=== PATIENT | female | born 1960 | race Caucasian/White ===

== ENCOUNTER → 2017-03-01 | Outpatient (CLI) | payer MEDICARE ==
--- NOTE | 2017-03-01 12:50 | MM ---
Reason for exam: additional evaluation requested from prior study. Last mammogram was performed 3 years and 6 months ago. History: Patient is postmenopausal and is nulliparous. Family history of breast cancer in cousin at age 44 and breast cancer in aunt at age 55. Benign excisional biopsy of the right breast, January 2004. Benign stereotactic core biopsy of the left breast, December 08, 1999. Benign stereotactic core biopsy of the right breast, February 19, 1998. Benign core biopsy of the left breast, February 12, 1997. Benign core biopsy of the right breast, February 12, 1997. Cyst aspiration of the left breast. Cyst aspiration of the right breast. Excisional biopsy of the left breast. Physical Findings: Nurse did not find any significant physical abnormalities on exam. MG 3D Diag Mammo W/Cad HEVER Bilateral CC, MLO, and XCCL view(s) were taken. Prior study comparison: August 28, 2013, bilateral MG diagnostic mammo w CAD HEVER. June 12, 2012, CAD bilateral diagnostic mammogram. January 24, 2011, bilateral digital screening mammo w/CAD. The breast tissue is heterogeneously dense. This may lower the sensitivity of mammography. Finding: There are stable typically benign calcifications in both breasts. No suspicious abnormality. These results were verbally communicated with the patient and result sheet given to the patient on 03/01/17. ASSESSMENT: Benign, BI-RAD 2 RECOMMENDATION: Routine screening mammogram of both breasts in 1 year. Manage patient on a clinical basis. (bilateral nonfocal breast pain)
== END | disposition home or self-care (01) ==
LOC: RADMAMWWP 11:03
PROVIDERS: ATTEND Family Medicine
DX: R92.8 Other abnormal and inconclusive findings on diagnostic imaging of breast (principal); N64.4 Mastodynia
CPT/HCPCS: G0204; G0279

== ENCOUNTER → 2018-10-24 | Outpatient (CLI) | payer MEDICARE ==
--- NOTE | 2018-10-25 09:35 | MM ---
Reason for exam: clinical finding. Last mammogram was performed 1 year and 8 months ago. History: Patient is postmenopausal and is nulliparous. Family history of breast cancer in cousin at age 44 and breast cancer in aunt at age 55. Benign excisional biopsy of the right breast, January 2004. Benign stereotactic core biopsy of the left breast, December 08, 1999. Benign stereotactic core biopsy of the right breast, February 19, 1998. Benign core biopsy of the left breast, February 12, 1997. Benign core biopsy of the right breast, February 12, 1997. Cyst aspiration of the left breast. Cyst aspiration of the right breast. Excisional biopsy of the left breast. Physical Findings: Nurse did not find any significant physical abnormalities on exam. MG 3D Diag Mammo W/Cad HEVER Bilateral CC and MLO view(s) were taken. LM, CC with magnification, and LM with magnification view(s) were taken of the left breast. Prior study comparison: March 01, 2017, bilateral MG 3d diag mammo w/cad HEVER. August 28, 2013, bilateral MG diagnostic mammo w CAD HEVER. The breast tissue is heterogeneously dense. This may lower the sensitivity of mammography. Finding: There are intermediate concern, suspicious heterogeneous, grouped/clustered calcifications in the 11-12 o'clock middle position of the left breast 5cm from the nipple. New finding since March 01, 2017. These results were verbally communicated with the patient and result sheet given to the patient on 10/24/18. ASSESSMENT: Suspicious, BI-RAD 4 RECOMMENDATION: Stereotactic core biopsy of the left breast. Manage patient on a clinical basis. Called Dr. Mccormick with mammographic findings and has scheduled an appointment for the patient for 11/14/18 at 4:[address] Singh. Biopsy scheduled for 11/15/18 at 10:20. PRELIMINARY REPORT CALLED AND FAXED TO DR. SINGH ON 10/25/18.
== END | disposition home or self-care (01) ==
LOC: RADMAMWWP 12:59
PROVIDERS: ATTEND Family Medicine
DX: R92.8 Other abnormal and inconclusive findings on diagnostic imaging of breast (principal)
CPT/HCPCS: 77066; G0279; 77062

== ENCOUNTER → 2018-11-14 | Outpatient (CLI) | payer MEDICARE ==
[2018-11-14 16:16] VITALS: BP 120/79; PULSE 65; RESP 18; TEMP 98; BMI 42.0
--- NOTE | 2018-11-14 16:45 | P.GSHP ---
History of Present Illness H&P Date: 11/14/18 Chief Complaint: abnormal mammogram Charmaine is a 58-year-old white female with a complaint of right breast discomfort in the upper outer quadrant area. She says she noted it first 2 months ago after her dog jumped on her breast. She subsequently had a bilateral mammogram performed on and this revealed some calcifications of concern in the left breast. Nothing of concern was seen in the right breast. The patient states she still has some discomfort at that site in the right breast. The patient does not complain of any lumps or masses in her breasts. Family history: maternal aunt: breast cancer maternal cousin: breast cancer 2nd maternal cousin: breast cancer maternal grandmother: ovarian cancer paternal grandmother: skin cancer Hormonal history: Menarche: 9 G0 menopause: hysterectomy at 40 done for bleeding, took both ovaries BCP: 1 month hormones: none Surgical history: 1. Hysterectomy 2. thyroid resection was in mediastinum 3. tumors removed in head: neurofibromatosis 4. plates in head 5. tonsils 6. bladder suspension 7. gastric bypass 8. gallbladder 9. appendix 10. multiple orthopedic procedures History: 1. Neurofibromatosis History: Smoke: Negative Alcohol: Negative Drugs: Negative Medical History: - Constitutional Constitutional: Denies chills, Denies fever - EENT Eyes: denies blurred vision, denies pain Ears: left: decreased hearing, deny: tinnitus Ears, nose, mouth and throat: Reports headache, Denies sore throat - Breasts Breasts: bilateral: as per HPI - Cardiovascular Cardiovascular: Reports high blood pressure, Denies chest pain, Denies shortness of breath - Respiratory Respiratory: Denies cough, Denies 7 - Gastrointestinal Gastrointestinal: Denies abdominal pain, Denies diarrhea, Denies nausea, Denies vomiting - Genitourinary (Female) Genitourinary: Denies dysuria, Denies hematuria - Menstruation Menstruation: Reports post hysterectomy - Musculoskeletal Musculoskeletal: Denies myalgias - Integumentary Integumentary: Denies pruritus, Denies rash - Neurological Comment: Neurofibromatosis - Psychiatric Psychiatric: Denies anxiety, Denies depression - Endocrine Comment: lost 200 pounds after bypass, did weigh close to 400 pounds Endocrine: Denies fatigue, Denies weight change - Hematologic/Lymphatic Comment: none - Allergic/Immunologic Allergic/Immunologic: Reports seasonal allergies Past Medical History Past Medical History: CVA/TIA, Hypertension, Skin Disorder, Thyroid Disorder Additional Past Medical History / Comment(s): TIA X3, RT HAND NUMBNESS, neurofibormatosis-cyst form,bowel obstruction surgery 10/17/15 History of Any Multi-Drug Resistant Organisms: None Reported Past Surgical History: Appendectomy, Bariatric Surgery, Cholecystectomy, Hysterectomy, Orthopedic Surgery, Tonsillectomy Additional Past Surgical History / Comment(s): RYGB 11/22/2012, tumors removed from scalp, THYROIDECTOMY, panniculectomy 02/14/14 of 25lbs, lap band, gastric bypass. Bowel obstruction-laparoscopic surgery. Past Anesthesia/Blood Transfusion Reactions: No Reported Reaction Past Psychological History: No Psychological Hx Reported Smoking Status: Never smoker Past Alcohol Use History: None Reported Past Drug Use History: None Reported - Past Family History Sister(s) Family Medical History: Deep Vein Thrombosis (DVT) Medications and Allergies Home Medications Medication Instructions Recorded Confirmed Type Multivit with Calcium,Iron,Min 1 tab PO DAILY 09/23/13 11/14/18 History [Women's Daily Multivitamin] Topiramate 50 mg PO TID 09/23/13 11/14/18 History Chlorthalidone 25 mg PO DAILY 10/17/15 11/14/18 History Propranolol [Inderal] 20 mg PO BID 10/17/15 11/14/18 History amLODIPine BESYLATE [Amlodipine 5 mg PO DAILY 10/17/15 11/14/18 History Besylate] Calcium Lactate 84 mg PO BID #60 tablet 01/22/16 11/14/18 Rx Aspirin [Adult Low Dose Aspirin EC] 81 mg PO DAILY 10/29/18 11/14/18 History Mirabegron [Myrbetriq] 50 mg PO DAILY 10/29/18 11/14/18 History Simvastatin [Zocor] 20 mg PO HS 10/29/18 11/14/18 History Allergies Allergy/AdvReac Type Severity Reaction Status Date / Time codeine Allergy Rash/Hives Verified 11/14/18 16:17 adhesive AdvReac Mild Rash/Hives Verified 11/14/18 16:17 Surgical - Exam Vital Signs Temp Pulse Resp BP Pulse Ox 98.0 F 65 18 120/79 95 11/14/18 16:10 11/14/18 16:10 11/14/18 16:10 11/14/18 16:10 11/14/18 16:10 BMI 42 - General obese - Eyes normal ocular movement - ENT no hearing loss, no congestion - Neck no masses, trachea midline - Respiratory normal respiratory effort, clear to auscultation - Cardiovascular Rhythm: regular Heart Sounds: normal: S1, S2 - Abdomen Abdomen: soft - Integumentary normal turgor - Neurologic no disoriented, no combative - Musculoskeletal normal gait, normal posture - Psychiatric oriented to time, oriented to person, oriented to place, speech is normal, memory intact Breast examination: Right breast: Multi-positional exam some superficial neurofibromas no dominant masses or nodules of concern, fibrocystic changes Right axilla: No adenopathy of concern Left breast: Superficial neurofibromas identified, no deep dominant masses or nodules of concern in the breast Left axilla: No adenopathy of concern Results Mammogram results reviewed Assessment and Plan Assessment: Impression: 1. Neurofibromatosis 2. Abnormal left breast mammogram 3. Mastodynia right breast 4. Fibrocystic breast changes 5. Family history of cancer 6. Family history of breast cancer I discussed with the patient the mastodynia in her right breast related to her dog jumping on the breast does not reveal anything on exam nor in the radiograph. I suspect that she may have had a previous there and is taking time to resolve. The radiographic abnormality in the left breast warrant stereotactic core biopsy. I discussed the risk and benefits and she wishes to proceed in the near future. Plan: 1. Medical management of medical conditions 2. Stereotactic core biopsy of the left breast 3. Conservative management of the right breast mastodynia Cc: Dr. Oh Villar
== END ==
LOC: WWCWWP 15:31
PROVIDERS: ATTEND Surgery
DX: Z53.9 Procedure and treatment not carried out, unspecified reason (principal)

== ENCOUNTER → 2018-11-15 | Day surgery (SDC) | payer MEDICARE ==
[2018-11-15 09:40] VITALS: RESP 12
[2018-11-15 11:15] VITALS: BP 116/75; PULSE 60; TEMP 98.7
--- NOTE | 2018-11-15 11:44 | MM ---
EXAMINATION TYPE: MG stereo VAD BX LT DATE OF EXAM: 11/15/2018 COMPARISON: Prior mammograms October 24, 2018 and older mammogram CLINICAL HISTORY: Abnormal mammogram. TECHNIQUE: Stereotactic guided core biopsy of left breast. FINDINGS: The procedure of stereotactic guided core biopsy was explained to the patient. Benefits, alternatives, and risks were discussed. An informed consent was then obtained. The shortness pathway for biopsy was chosen. Shortness pathway was cranial approach. I performed the localization, then performed the remainder of the procedure. Overlying skin is cleansed with Betadine. Lidocaine was used as local anesthetic. Lidocaine with epinephrine is used as deeper anesthetic during sampling. A vacuum assisted biopsy gun was used to obtain multiple core samples. The patient tolerated the procedure well without any immediate complication. The patient was kept in the radiology department for short stay after the procedure and then discharged home in stable condition. Targeted calcifications are identified in specimen mammogram. Post biopsy mammogram shows the clip to appear in satisfactory position relative to the targeted area of concern on the preprocedure images. No significant residual calcifications are present. IMPRESSION: SUCCESSFUL, UNCOMPLICATED STEREOTACTIC GUIDED CORE BIOPSY OF AREA OF CONCERN IN THE LEFT BREAST, FULL PATHOLOGY RESULTS TO FOLLOW. Intermediate index of suspicion noted at time of procedure. Pathology Results: Benign LEFT BREAST, STEREOTACTIC CORE BIOPSY: Fibrocystic changes including sclerosing adenosis with calcifications, fibrosis, cysts, apocrine metaplasia, columnar cell change, and mild usual type ductal hyperplasia. Negative for malignancy. Recommendation Follow up mammogram of the left breast in 6 months. CATIAD
== END ==
LOC: RADMAMWWP 09:15
PROVIDERS: ATTEND Surgery
DX: N60.22 Fibroadenosis of left breast (principal); R92.1 Mammographic calcification found on diagnostic imaging of breast; N60.32 Fibrosclerosis of left breast; N60.82 Other benign mammary dysplasias of left breast; N60.92 Unspecified benign mammary dysplasia of left breast; R92.8 Other abnormal and inconclusive findings on diagnostic imaging of breast; Z88.5 Allergy status to narcotic agent; Z91.09 Other allergy status, other than to drugs and biological substances
CPT/HCPCS: 88305; 19081; A4648; J2001

== ENCOUNTER → 2018-11-26 | Outpatient (CLI) | payer MEDICARE ==
[2018-11-26 13:34] VITALS: BP 128/78; PULSE 62; RESP 18; TEMP 97.5; BMI 42.0
--- NOTE | 2018-11-26 13:42 | P.PN ---
Subjective Progress Note Date: 11/26/18 It is a 58-year-old white female status post left breast atypical a biopsy on 11-15-18. Pathology was benign. Patient has no complaints related to the procedure. Objective - Vital Signs Vital signs: Vital Signs Temp 97.5 F L 11/26/18 13:29 Pulse 62 11/26/18 13:29 Resp 18 11/26/18 13:29 BP 128/78 11/26/18 13:29 Pulse Ox 97 11/26/18 13:29 Intake & Output 11/25/18 11/26/18 11/26/18 18:59 06:59 18:59 Weight 97.522 kg - Exam BMI 42 - Constitutional General appearance: Present: obese - EENT Eyes: Present: EOMI ENT: Present: hearing grossly normal - Neck Neck: Present: normal ROM - Respiratory Respiratory: bilateral: CTA - Cardiovascular Rhythm: regular Heart sounds: normal: S1, S2 - Integumentary Integumentary: Present: normal turgor - Musculoskeletal Musculoskeletal: Present: gait normal - Psychiatric Psychiatric: Present: A&O x's 3, appropriate affect, intact judgment & insight - Additional findings Additional findings: Left breast exam: Incision site clean and dry Evidence of infection no hematoma no ecchymosis Assessment and Plan Assessment: Impression: 1. Status post left breast stereotactic core biopsy pathology benign 2. Mastodynia right breast seems to be resolving 3. Fibrocystic breast changes 4. Family history of cancer 5. Family history of breast cancer 6. Neurofibromatosis Plan: 1. Repeat left breast mammogram and 6 months with physician exam at that time 2. Cervidil management of left breast pain 3. Medical management of medical conditions Cc: Dr. Jaimee Mccormick
== END | disposition home or self-care (01) ==
LOC: WWCWWP 13:09
PROVIDERS: ATTEND Surgery
DX: Z53.9 Procedure and treatment not carried out, unspecified reason (principal)

== ENCOUNTER → 2019-05-13 | Outpatient (CLI) | payer MEDICARE ==
--- NOTE | 2019-05-13 13:46 | MM ---
Reason for exam: follow-up at short interval from prior study. Last mammogram was performed 7 months ago. History: Patient is postmenopausal and is nulliparous. Family history of breast cancer in cousin at age 44 and breast cancer in aunt at age 55. Benign MG stereo VAD BX LT of the left breast, November 15, 2018. Benign excisional biopsy of the right breast, January 2004. Benign stereotactic core biopsy of the left breast, December 08, 1999. Benign stereotactic core biopsy of the right breast, February 19, 1998. Benign core biopsy of the left breast, February 12, 1997. Benign core biopsy of the right breast, February 12, 1997. Cyst aspiration of the left breast. Cyst aspiration of the right breast. Excisional biopsy of the left breast. Physical Findings: Nurse did not find any significant physical abnormalities on exam. MG 3D Diag Mammo W/Cad LT CC, MLO, and XCCL view(s) were taken of the left breast. Prior study comparison: October 24, 2018, bilateral MG 3d diag mammo w/cad HEVER. March 01, 2017, bilateral MG 3d diag mammo w/cad HEVER. The breast tissue is heterogeneously dense. This may lower the sensitivity of mammography. Benign appearing calcifications in the left breast. No suspicious abnormality. Left biopsy markers noted. No significant new findings when compared with previous films. These results were verbally communicated with the patient and result sheet given to the patient on 05/13/19. ASSESSMENT: Benign, BI-RAD 2 RECOMMENDATION: Routine screening mammogram of both breasts in 6 months. Back on schedule.
== END | disposition home or self-care (01) ==
LOC: RADMAMWWP 12:57
PROVIDERS: ATTEND Surgery
DX: R92.8 Other abnormal and inconclusive findings on diagnostic imaging of breast (principal)
CPT/HCPCS: 77061; 77065

== ENCOUNTER 2020-04-09 22:58 | Inpatient (IN) | payer MEDICARE ==
--- NOTE | 2020-04-09 23:28 | ED ---
SOB HPI - General Source: patient Mode of arrival: ambulatory Limitations: no limitations <Emani Amaya - Last Filed: 04/10/20 01:37> <Tushar Holman - Last Filed: 04/13/20 09:04> - General Chief Complaint: Shortness of Breath Stated Complaint: PRINCE Time Seen by Provider: 04/09/20 23:10 - History of Present Illness Initial Comments: 60-year-old female patient presents to the emergency department today for ev aluation of shortness of breath. States symptoms started earlier this afternoon. States she is having pain across her chest with this. She is also reporting right jaw pain. States the pain is worse when she takes deep breath. Denies any cough or congestion. Denies fever or chills. Denies nausea or vomiting. Denies any sweats. States she does have a history of high blood pressure. Family history of cardiac disease in her mother. Denies history of smoking. Patient denies any recent rash, abdominal pain, diarrhea, constipation, back pain, numbness, tingling, dizziness, weakness, hematuria, dysuria, urinary urgency, urinary frequency, visual changes, or any other complaints. (Emani Amaya) - Related Data Home Medications Medication Instructions Recorded Confirmed Topiramate 50 mg PO TID 09/23/13 04/10/20 Chlorthalidone 25 mg PO DAILY 10/17/15 04/10/20 Propranolol [Inderal] 20 mg PO BID 10/17/15 04/10/20 amLODIPine BESYLATE [Amlodipine 5 mg PO DAILY 10/17/15 04/10/20 Besylate] Mirabegron [Myrbetriq] 50 mg PO DAILY 10/29/18 04/10/20 Simvastatin [Zocor] 20 mg PO HS 10/29/18 04/10/20 Montelukast [Singulair] 10 mg PO DAILY 04/10/20 04/10/20 Allergies Allergy/AdvReac Type Severity Reaction Status Date / Time codeine Allergy Rash/Hives Verified 04/10/20 08:06 adhesive AdvReac Mild Rash/Hives Verified 04/10/20 08:06 Review of Systems ROS Other: All systems not noted in ROS Statement are negative. <Emani Amaya - Last Filed: 04/10/20 01:37> ROS Other: All systems not noted in ROS Statement are negative. <Tushar Holman - Last Filed: 04/13/20 09:04> ROS Statement: Those systems with pertinent positive or pertinent negative responses have been documented in the HPI. Past Medical History Past Medical History: CVA/TIA, Hypertension, Skin Disorder, Thyroid Disorder Additional Past Medical History / Comment(s): TIA X3, RT HAND NUMBNESS, neurofibormatosis-cyst form,bowel obstruction surgery 10/17/15 History of Any Multi-Drug Resistant Organisms: None Reported Past Surgical History: Appendectomy, Bariatric Surgery, Cholecystectomy, Hysterectomy, Orthopedic Surgery, Tonsillectomy Additional Past Surgical History / Comment(s): RYGB 11/22/2012, tumors removed from scalp, THYROIDECTOMY, panniculectomy 02/14/14 of 25lbs, lap band, gastric bypass. Bowel obstruction-laparoscopic surgery. Past Anesthesia/Blood Transfusion Reactions: No Reported Reaction Past Psychological History: No Psychological Hx Reported Smoking Status: Never smoker Past Alcohol Use History: None Reported Past Drug Use History: None Reported - Past Family History Sister(s) Family Medical History: Deep Vein Thrombosis (DVT) <Emani Amaya - Last Filed: 04/10/20 01:37> General Exam Limitations: no limitations General appearance: alert, in no apparent distress, other (This is a well- developed, well-nourished adult female patient in no acute distress. Vital signs upon presentation are temperature 97.8F, pulse 84, respirations 18, blood pressure 106/61, pulse ox 95% on room air.) Respiratory exam: Present: normal lung sounds bilaterally. Absent: respiratory distress, wheezes, rales, rhonchi, stridor Cardiovascular Exam: Present: regular rate, normal rhythm, normal heart sounds. Absent: systolic murmur, diastolic murmur, rubs, gallop, clicks GI/Abdominal exam: Present: soft, normal bowel sounds. Absent: distended, tenderness, guarding, rebound, rigid Neurological exam: Present: alert, oriented X3, CN II-XII intact Psychiatric exam: Present: normal affect, normal mood Skin exam: Present: warm, dry, intact, normal color. Absent: rash <Emani Amaya - Last Filed: 04/10/20 01:37> Course Vital Signs 04/09/20 04/09/20 04/10/20 23:01 23:33 00:47 Temperature 97.8 F Pulse Rate 84 73 Pulse Rate [ Pulse Oximetery ] Respiratory 18 20 18 Rate Blood Pressure 106/61 124/75 Blood Pressure [Left Arm Supine] O2 Sat by Pulse 95 96 Oximetry 04/10/20 01:16 Temperature 98.1 F Pulse Rate Pulse Rate [ 74 Pulse Oximetery ] Respiratory 20 Rate Blood Pressure Blood Pressure 139/75 [Left Arm Supine] O2 Sat by Pulse 95 Oximetry Medical Decision Making - Lab Data Result diagrams: 04/09/20 23:33 04/09/20 23:33 - EKG Data -: EKG Interpreted by Me - Radiology Data Radiology results: report reviewed, image reviewed <Emani Amaya - Last Filed: 04/10/20 01:37> - Lab Data Result diagrams: 04/13/20 05:51 04/12/20 05:36 <Tushar Holman - Last Filed: 04/13/20 09:04> - Medical Decision Making 60-year-old female patient presents to the emergency department today for evaluation of shortness of breath chest pain. Physical examination did reveal clear equal lung sounds. Soft nontender abdomen. Labs reviewed and did reveal elevated white blood cell count at 13.5, neutrophils 9.3. D-dimer is 0.65. BUN elevated at 23. BNP is 253. Her Covid test was negative. We did do CT chest angiography to rule out pulmonary embolism which showed possible atypical pneumonia but no evidence for pulmonary embolism. She'll be started on antib iotics and admitted to the hospital for ammonia. She is agreeable with this plan. We will do serial troponins due to her chest discomfort. (Emani Amaya) I saw this patient in conjunction with the physician assistant professor of surgery. I performed independent history and physical exam. Agree with case management. (Tushar Holman) - Lab Data Lab Results 04/09/20 04/09/20 04/09/20 Range/Units 23:33 23:33 23:33 WBC 13.5 H (3.8-10.6) k/uL RBC 5.20 (3.80-5.40) m/uL Hgb 13.7 (11.4-16.0) gm/dL Hct 43.5 (34.0-46.0) % MCV 83.7 (80.0-100.0) fL MCH 26.3 (25.0-35.0) pg MCHC 31.4 (31.0-37.0) g/dL RDW 14.3 (11.5-15.5) % Plt Count 309 (150-450) k/uL MPV 7.3 Neutrophils % 69 % Lymphocytes % 19 % Monocytes % 8 % Eosinophils % 2 % Basophils % 0 % Neutrophils # 9.3 H (1.3-7.7) k/uL Lymphocytes # 2.5 (1.0-4.8) k/uL Monocytes # 1.1 H (0-1.0) k/uL Eosinophils # 0.3 (0-0.7) k/uL Basophils # 0.0 (0-0.2) k/uL PT 10.3 (9.0-12.0) sec INR 1.0 (<1.2) APTT 29.1 (22.0-30.0) sec D-Dimer 0.65 H (<0.60) mg/L FEU Sodium 134 L (137-145) mmol/L Potassium 4.2 (3.5-5.1) mmol/L Chloride 102 (98-107) mmol/L Carbon Dioxide 24 (22-30) mmol/L Anion Gap 8 mmol/L BUN 23 H (7-17) mg/dL Creatinine 1.01 (0.52-1.04) mg/dL Est GFR (CKD-EPI)AfAm 70 (>60 ml/min/1.73 sqM) Est GFR (CKD-EPI)NonAf 61 (>60 ml/min/1.73 sqM) Glucose 113 H (74-99) mg/dL Calcium 9.1 (8.4-10.2) mg/dL Magnesium 2.5 H (1.6-2.3) mg/dL Total Bilirubin 0.6 (0.2-1.3) mg/dL AST 34 (14-36) U/L ALT 18 (4-34) U/L Alkaline Phosphatase 101 (38-126) U/L Troponin I (0.000-0.034) ng/mL NT-Pro-B Natriuret Pep pg/mL Total Protein 6.7 (6.3-8.2) g/dL Albumin 3.7 (3.5-5.0) g/dL Coronavirus (PCR) (Not Detectd) 04/09/20 04/09/20 04/09/20 Range/Units 23:33 23:33 23:33 WBC (3.8-10.6) k/uL RBC (3.80-5.40) m/uL Hgb (11.4-16.0) gm/dL Hct (34.0-46.0) % MCV (80.0-100.0) fL MCH (25.0-35.0) pg MCHC (31.0-37.0) g/dL RDW (11.5-15.5) % Plt Count (150-450) k/uL MPV Neutrophils % % Lymphocytes % % Monocytes % % Eosinophils % % Basophils % % Neutrophils # (1.3-7.7) k/uL Lymphocytes # (1.0-4.8) k/uL Monocytes # (0-1.0) k/uL Eosinophils # (0-0.7) k/uL Basophils # (0-0.2) k/uL PT (9.0-12.0) sec INR (<1.2) APTT (22.0-30.0) sec D-Dimer (<0.60) mg/L FEU Sodium (137-145) mmol/L Potassium (3.5-5.1) mmol/L Chloride (98-107) mmol/L Carbon Dioxide (22-30) mmol/L Anion Gap mmol/L BUN (7-17) mg/dL Creatinine (0.52-1.04) mg/dL Est GFR (CKD-EPI)AfAm (>60 ml/min/1.73 sqM) Est GFR (CKD-EPI)NonAf (>60 ml/min/1.73 sqM) Glucose (74-99) mg/dL Calcium (8.4-10.2) mg/dL Magnesium (1.6-2.3) mg/dL Total Bilirubin (0.2-1.3) mg/dL AST (14-36) U/L ALT (4-34) U/L Alkaline Phosphatase (38-126) U/L Troponin I <0.012 (0.000-0.034) ng/mL NT-Pro-B Natriuret Pep 253 pg/mL Total Protein (6.3-8.2) g/dL Albumin (3.5-5.0) g/dL Coronavirus (PCR) Not Detected (Not Detectd) - EKG Data EKG Comments: EKG obtained at 2315 shows normal sinus rhythm with a ventricular rate of 80, P return to 184, QRS duration 72, QT 384, QTC 442. No evidence of ST elevation or depression. (Emani Amaya) - Radiology Data CT chest angiography was obtained. Report was reviewed in its entirety. Impression by Dr. Crenshaw shows hypoaeration. No central pulmonary embolism. Markedly limited evaluation of the peripheral branch of the pulmonary arteries. No gross pulmonary embolus are noted at the periphery. Cardiomegaly. Diffuse patchy airspace disease bilateral. Atypical pneumonia cannot be excluded and clinical correlation is advised. ASCVD. One view x-ray of the chest is obtained. Report was reviewed in its entirety. Impression by Dr. Gaitan shows no active cardiopulmonary disease. Borderline cardiomegaly. No change. (Emani Amaya) Disposition Decision to Admit Reason: Admit from EC Decision Date: 04/10/20 Decision Time: 01:07 <Emani Amaya - Last Filed: 04/10/20 01:37> <Tushar Holman - Last Filed: 04/13/20 09:04> Clinical Impression: Pneumonia, Dyspnea Disposition: ADMITTED IP TO THIS HOSP Condition: Serious
[2020-04-09 23:37] LABS: Basophils % (A) 0 %; Eosinophils # (A) 0.3 k/uL (0-0.7); Eosinophils % (A) 2 %; HCT 43.5 % (34.0-46.0); HGB 13.7 gm/dL (11.4-16.0); Lymphocytes # (A) 2.5 k/uL (1.0-4.8); Lymphocytes % (A) 19 %; MCH 26.3 pg (25.0-35.0); MCHC 31.4 g/dL (31.0-37.0); MCV 83.7 fL (80.0-100.0); Mean Platelet Volume 7.3; Monocytes # (A) 1.1 k/uL (0-1.0); Monocytes % (A) 8 %; Neutrophils # (A) 9.3 k/uL (1.3-7.7); Neutrophils % (A) 69 %; Platelet Count 309 k/uL (150-450); RDW 14.3 % (11.5-15.5); WBC 13.5 k/uL (3.8-10.6)
[2020-04-09 23:51] LABS: Partial Thromboplastin Time 29.1 sec (22.0-30.0); Prothrombin Time 10.3 sec (9.0-12.0)
--- NOTE | 2020-04-09 23:52 | XR ---
EXAMINATION TYPE: XR chest 1V portable DATE OF EXAM: 04/09/2020 COMPARISON: 10/17/2015 HISTORY: Short of breath TECHNIQUE: FINDINGS: There is no heart failure nor confluent pneumonic infiltrate. There are sternal wires. Cost ophrenic angles are clear. There are chest leads. IMPRESSION: No active cardiopulmonary disease. Borderline cardiomegaly. No change.
[2020-04-09 23:53] LABS: Albumin 3.7 g/dL (3.5-5.0); Calcium 9.1 mg/dL (8.4-10.2); Magnesium 2.5 mg/dL (1.6-2.3); Potassium 4.2 mmol/L (3.5-5.1); Total Bilirubin 0.6 mg/dL (0.2-1.3); Total Protein 6.7 g/dL (6.3-8.2)
--- NOTE | 2020-04-10 00:36 | CT ---
EXAM: CT Angiography Chest With Intravenous Contrast CLINICAL HISTORY: ITS.REASON CT Reason: SOB; Elevated D-dimer TECHNIQUE: Axial computed tomographic angiography images of the chest with intravenous contrast. CTDI is 28.4 mGy and DLP is 592.2 mGy-cm. This CT exam was performed using one or more of the following dose reduction techniques: automated exposure control, adjustment of the mA and/or kV according to patient size, and/or use of iterative reconstruction technique. MIP reconstructed images were created and reviewed. COMPARISON: Plain film evaluation of the chest performed earlier today. FINDINGS: Pulmonary arteries: No central pulmonary embolism is detected. Markedly limited of the peripheral branch of the pulmonary arteries. Grossly, no definite pulmonary embolism is noted. Aorta: No acute findings. No thoracic aortic aneurysm. Lungs: Minimal patchy airspace disease is noted throughout both lungs. Atypical pneumonias cannot be excluded. The airway is patent. No mass. Pleural space: Unremarkable. No significant effusion. No pneumothorax. Heart: Cardiomegaly. No significant pericardial effusion. No evidence of RV dysfunction. Thyroid: Thickening of the thyroid isthmus. Mild enlargement of the thyroid gland. Bones/joints: No acute fracture. No dislocation. Soft tissues: Unremarkable. Lymph nodes: Unremarkable. No enlarged lymph nodes. Liver: Diffuse fatty infiltration of the liver. Stomach and bowel: Postsurgical changes about the stomach. Other findings: Mild to moderate degenerative disc disease of the spinal:. Hypoaeration. IMPRESSION: 1. Hypoaeration. 2. No central pulmonary embolism. 3. Markedly limited evaluation of the peripheral branch of the pulmonary arteries. No gross pulmonary emboli are noted at the periphery. 4. Cardiomegaly. 5. Diffuse patchy airspace disease bilaterally. Atypical pneumonia cannot be excluded and clinical correlation is advised to 6. ASCVD.
[2020-04-10] MEDS ORDERED: AZITHROMYCIN 500 MG in SODIUM CHLORIDE 0.9% 250 ML IVPB STA (00:54)
[2020-04-10] MEDS ORDERED: NALOXONE 0.4 MG/ML 1 ML VIAL IV PRN (01:03)
[2020-04-10] MEDS ORDERED: IPRATROPIUM-ALBUTEROL 3 ML NEB INHALATION PRN (09:39)
[2020-04-10] MEDS: amLODIPine 5 MG TAB PO SCH (09:58)
[2020-04-10] MEDS: methylPREDNISolone SOD SUCCI 40 MG/ML 1 ML VIAL IV SCH ×3 (09:58→23:52)
--- NOTE | 2020-04-10 12:54 | HP ---
HISTORY AND PHYSICAL 60-year-old white female with shortness of breath started this afternoon, pressure across her chest radiating into the right jaw, worse when she takes a deep breath. Denies fever, chills, nausea, vomiting, sweats. She has history of hypertension and cardiovascular runs in the family with her mom. Does not smoke. Denies any abdominal pain, diarrhea, nausea, vomiting, hematuria, dysuria, frequency, urgency, hesitancy. MEDICATIONS: Home medicines: Topamax for chronic headaches 50 b.i.d., chlorthalidone 125 daily, Inderal 20 b.i.d., amlodipine 5 daily, multivitamin daily, 50 daily, Zocor 20 daily. ALLERGIES: TO CODEINE AND ADHESIVE REVIEW OF SYMPTOMS: 14-point review of systems otherwise negative. PAST MEDICAL HISTORY: CVA, TIA, hypertension, skin disorder, thyroid disorder, TIA x3, right hand numbness, neurofibromatosis, bariatric surgery in the past, appendectomy, cholecystectomy, hysterectomy, orthopedic surgery, tonsillectomy, thyroidectomy, tumors removed from her skull, bowel obstruction, laparoscopic surgery. SOCIAL HISTORY: Does not smoke or do illicit drugs. FAMILY HISTORY: Sister history of DVT. CT of the chest was also done which was negative for any PE. PHYSICAL EXAMINATION: Temperature 97.8, pulse 70s to 80s, blood pressure 106 to 124 over 60s to 70s. O2 95- 96 on room air. Lungs are decreased breath sounds. No rales, rhonchi or stridor. Heart: Cardiac S1, S2. GI soft, distended due to obesity. Neurologic: Cranial nerves are intact on neurologic exam. Psych: Fair mood and affect. Skin: No rash, excoriation or bruises present. Labs show an elevated white count 13.5, neutrophils 9.3. D-dimer is 0.65. BNP 253. Covid was negative. CT chest shows atypical pneumonia bilaterally. ASSESSMENT: 1. Community-acquired pneumonia. 2. Leukocytosis secondary to above. 3. Mild hyponatremia. 4. Prerenal renal insufficiency due to acute tubular necrosis versus dehydration. ASSESSMENT: Admitted for community acquired pneumonia, acute hypoxemic respiratory distress. Continue with medications as mentioned, Rocephin azithromycin, possible steroids. MMODL / IJN: [id number] /
[2020-04-10] MEDS: ACETAMINOPHEN TAB 325 MG TAB PO PRN ×2 (13:38→23:49)
[2020-04-10] MEDS: TOPIRAMATE 25 MG TAB PO SCH ×2 (15:16→21:05)
[2020-04-10] MEDS: ATORVASTATIN 10 MG TAB PO SCH (21:05)
[2020-04-10] MEDS: PROPRANOLOL 20 MG TAB PO SCH (21:05)
[2020-04-10] MEDS: AZITHROMYCIN 500 MG in SODIUM CHLORIDE 0.9% 250 ML IVPB SCH (23:51)
[2020-04-11] MEDS: methylPREDNISolone SOD SUCCI 40 MG/ML 1 ML VIAL IV SCH ×3 (09:02→23:49)
[2020-04-11] MEDS: ACETAMINOPHEN TAB 325 MG TAB PO PRN (09:02)
[2020-04-11] MEDS: MONTELUKAST 10 MG TAB PO SCH (09:03)
[2020-04-11] MEDS: Mirabegron [Myrbetriq] PO SCH (09:03)
[2020-04-11] MEDS: TOPIRAMATE 25 MG TAB PO SCH ×3 (09:03→21:24)
[2020-04-11] MEDS: amLODIPine 5 MG TAB PO SCH (09:03)
[2020-04-11] MEDS: PROPRANOLOL 20 MG TAB PO SCH ×2 (09:03→21:24)
--- NOTE | 2020-04-11 10:37 | PN ---
PROGRESS NOTE 60-year-old white female with community-acquired pneumonia on broad-spectrum antibiotics. White counts 13.5 with increased neutrophils. Sodium 134, potassium 4.2, glucose 113. Patient is improving from a medical standpoint. Oxygen level is 96% on 2 L. Blood pressure is 119/60s, pulse 63 to 69, respiratory 18- 20, temp 97 to 98. CARDIOVASCULAR: S1, S2. LUNGS: Scattered rhonchi and wheeze. PSYCH: Fair mood and affect. ASSESSMENT: 1. Bilateral pneumonia. 2. Neurofibromatosis. 3. Acute hypoxemic respiratory failure. Continue steroids. IV antibiotics, nebulizer treatments. Prognosis guarded. Continue current treatment. MMODL / IJN: [id number] /
[2020-04-11] MEDS: IPRATROPIUM-ALBUTEROL 3 ML NEB INHALATION SCH ×2 (12:32→19:38)
[2020-04-11] MEDS: BUTALB/APAP/CAFF 50-325-40MG TAB PO PRN ×2 (14:13→23:58)
[2020-04-11] MEDS: ATORVASTATIN 10 MG TAB PO SCH (21:24)
[2020-04-11] MEDS: AZITHROMYCIN 500 MG in SODIUM CHLORIDE 0.9% 250 ML IVPB SCH (23:50)
[2020-04-12 06:04] LABS: Basophils % (A) 0 %; Eosinophils % (A) 0 %; HCT 45.2 % (34.0-46.0); HGB 14.4 gm/dL (11.4-16.0); Lymphocytes # (A) 1.3 k/uL (1.0-4.8); Lymphocytes % (A) 6 %; MCH 26.9 pg (25.0-35.0); MCHC 31.8 g/dL (31.0-37.0); MCV 84.6 fL (80.0-100.0); Mean Platelet Volume 7.4; Monocytes # (A) 0.7 k/uL (0-1.0); Monocytes % (A) 4 %; Neutrophils # (A) 17.8 k/uL (1.3-7.7); Neutrophils % (A) 89 %; Platelet Count 360 k/uL (150-450); RBC 5.34 m/uL (3.80-5.40); RDW 13.9 % (11.5-15.5); WBC 19.9 k/uL (3.8-10.6)
[2020-04-12] MEDS: IPRATROPIUM-ALBUTEROL 3 ML NEB INHALATION SCH ×3 (08:20→20:12)
[2020-04-12] MEDS: methylPREDNISolone SOD SUCCI 40 MG/ML 1 ML VIAL IV SCH ×2 (08:27→16:15)
[2020-04-12] MEDS: MONTELUKAST 10 MG TAB PO SCH (08:28)
[2020-04-12] MEDS: TOPIRAMATE 25 MG TAB PO SCH ×3 (08:28→22:04)
[2020-04-12] MEDS: PROPRANOLOL 20 MG TAB PO SCH ×2 (08:28→21:35)
[2020-04-12] MEDS: amLODIPine 5 MG TAB PO SCH (08:28)
[2020-04-12] MEDS: Mirabegron [Myrbetriq] PO SCH (08:29)
[2020-04-12] MEDS: BUTALB/APAP/CAFF 50-325-40MG TAB PO PRN ×2 (09:46→16:20)
[2020-04-12 10:21] LABS: African American GFR (CKD) 80.5 (60.0-200.0); Albumin 3.9 g/dL (3.80-4.90); Albumin/Globulin Ratio 1.63 (1.60-3.17); Anion Gap 8.6 mmol/L (4.00-12.00); BUN/Creat Ratio 27.78 Ratio (12.00-20.00); Calcium 9.6 mg/dL (8.7-10.3); Carbon Dioxide 27.4 mmol/L (21.6-31.8); Globulin 2.4 g/dL (1.6-3.3); Non-African American GFR(CKD) 69.5 (60.0-200.0); Potassium 4.3 mmol/L (3.5-5.5); Total Bilirubin 0.1 mg/dL (0.3-1.2); Total Protein 6.3 g/dL (6.2-8.2)
--- NOTE | 2020-04-12 12:29 | PN ---
PROGRESS NOTE The patient continues to have improvement. White count up to 19.9, hemoglobin 14.4, sodium 141, potassium 4.3. Negative troponins x3. Coronavirus was not detected. She remains on broad-spectrum antibiotics. Yesterday she requested some breathing treatments, which they were denying her. We ordered them at that time. She continues to have improvement. She is saturating at 97 on room on 2 L, temperature 97-98, pulse is 60s-70s respiratory rate 16-18. Cardiovascular S1-S2. Lungs scattered rhonchi and wheeze. Hematology negative Homans. ASSESSMENT: Community-acquired pneumonia, bilateral. Await for Infectious Disease consult. Continue with steroids, DuoNeb updrafts, Rocephin, azithromycin. Prognosis guarded. MMODL / IJN: [id number] /
[2020-04-12] MEDS: ATORVASTATIN 10 MG TAB PO SCH (21:35)
--- NOTE | 2020-04-12 22:59 | CONS ---
CONSULTATION DATE OF SERVICE: 04/12/2020 REASON FOR CONSULTATION: Leukocytosis. HISTORY OF PRESENT ILLNESS: The patient is a 60-year-old female presenting to the ER at [facility] 4 days ago on April 09, 2020 for evaluation of shortness of breath and chest pain. The patient's symptoms started after she presented to the hospital. The patient is complaining of pain across the chest, more sharp in nature with some radiation to the jaw and worse with taking a deep breath. No fever, no chills. No nausea, no vomiting. No abdominal pain. No diarrhea. No significant cough. With these symptoms, the patient was evaluated by the ER physician. On arrival to the ER, the patient has been afebrile. The patient did have a mildly elevated white count of 13.5 with known lymphopenia, slight left shift. White count is up to 19.9 today that has prompted this infectious disease consultation. The patient did have a normal liver enzymes. CRP, Procalcitonin was not done. German PCR was negative. The patient did have a chest x-ray was negative for acute infiltrate. She did have a CT angiogram of the chest that was negative for PE however did show minimal patchy airspace disease throughout both lungs with concern for possible atypical pneumonia. The patient has been treated with Rocephin and Zithromax. Infectious Disease was consulted for further management regarding her elevated white count. REVIEW OF SYSTEMS: Positive points have been mentioned in HPI. Rest of systems are negative. PAST MEDICAL HISTORY: CVA TIA, hypertension, hypothyroidism. PAST SURGICAL HISTORY: Appendectomy, cholecystectomy, hysterectomy, tonsillectomy. SOCIAL HISTORY: Denies smoking, drinking or drug use. FAMILY HISTORY: Sister with a history of DVT. ALLERGIES: To CODEINE. MEDICATIONS: Include the patient is currently on Tylenol, Claritin, DuoNeb, Norvasc, Lipitor, and azithromycin, Rocephin Solu-Medrol, Singulair, Narcan PHYSICAL EXAMINATION: Blood pressure 129/76, pulse of 73, temperature 97.8. She is 96% on 2 L nasal cannula. General description is a middle-aged female up in the bed in no distress. No tachypnea or accessory muscles of respiration use. HEENT: Examination shows no pallor or scleral icterus. Oral mucous membranes moist. Neck: Trachea central. No thyromegaly. Lungs unlabored breathing, decreased breath sounds in the base, with no wheeze. Heart S1, S2. Regular rate and rhythm. ABDOMEN: Soft, no tenderness. No rigidity. Extremities: No edema of the feet. Skin examination: No rash or mass palpable. Neurological: Patient is awake, alert, oriented times three. Mood and affect normal. LABS: Hemoglobin 14.4, white count 8.9, BUN of 25, creatinine 0.9. Electrolytes normal. Liver enzymes are normal. German PCR was negative. Chest x-ray report as mentioned above. DIAGNOSTIC IMPRESSION AND PLAN: Patient admitted to the hospital with increasing shortness of breath and chest pain in this patient who did have a CT angiogram of chest that was negative for pulmonary embolism. Did show bilateral infiltrate concern for atypical pneumonia. The patient Covid test came back negative, now with worsening of the white count more likely steroid related as clinically doubt any worsening respiratory symptoms or any other focus of infection. The patient abdomen was soft on clinical examination. No evidence of any cellulitis. PLAN: 1. We will recheck a chest x-ray. 2. Obtain UA and culture. 3. We will obtain urine for Legionella antigen. 4. We will check a CRP and procalcitonin. 5. We will follow on clinical condition to further adjust medication if needed. Thank you for this consultation. We will follow this patient along with you. AYAN / JUDYN: [id number] / MTDD
[2020-04-12 23:52] LABS: Appearance,Urine Clear (Clear); Bilirubin,Urine Negative (Negative); Blood,Urine Negative (Negative); Color,Urine Light Yellow; Glucose,Urine (UA) Negative (Negative); Ketones,Urine Negative (Negative); Leukocyte Esterase,Urine Small (Negative); Nitrite,Urine Negative (Negative); PH, Urine 5.5 (5.0-8.0); Protein,Urine Negative (Negative); RBC,Urine 1 /hpf (0-5); Specific Gravity,Urine 1.007 (1.001-1.035); Squamous Epithelial Cell,Urine <1 /hpf (0-4); Urobilinogen,Urine <2.0 mg/dL (<2.0); WBC,Urine 4 /hpf (0-5)
[2020-04-13] MEDS: AZITHROMYCIN 500 MG in SODIUM CHLORIDE 0.9% 250 ML IVPB SCH ×2 (00:46→23:33)
[2020-04-13] MEDS: methylPREDNISolone SOD SUCCI 40 MG/ML 1 ML VIAL IV SCH ×4 (00:46→23:33)
[2020-04-13] MEDS: BUTALB/APAP/CAFF 50-325-40MG TAB PO PRN (00:53)
[2020-04-13 06:41] LABS: Basophils % (A) 0 %; Eosinophils % (A) 0 %; HCT 42.2 % (34.0-46.0); HGB 13.5 gm/dL (11.4-16.0); Hypochromasia Slight; Lymphocytes # (A) 1.4 k/uL (1.0-4.8); Lymphocytes % (A) 10 %; MCH 27.3 pg (25.0-35.0); MCV 85.2 fL (80.0-100.0); Mean Platelet Volume 7.1; Monocytes # (A) 0.5 k/uL (0-1.0); Monocytes % (A) 4 %; Neutrophils # (A) 11.9 k/uL (1.3-7.7); Neutrophils % (A) 85 %; Platelet Count 344 k/uL (150-450); RBC 4.95 m/uL (3.80-5.40); RDW 14.1 % (11.5-15.5)
[2020-04-13] MEDS: IPRATROPIUM-ALBUTEROL 3 ML NEB INHALATION SCH ×3 (08:17→19:21)
--- NOTE | 2020-04-13 08:33 | XR ---
EXAMINATION TYPE: XR chest 2V DATE OF EXAM: 04/13/2020 COMPARISON: 04/09/2020 HISTORY: 60-year-old female with pneumonia TECHNIQUE: PA and lateral views FINDINGS: Median sternotomy wires are present. Heart normal size. Mild interstitial density without consolidati on or pleural effusion. IMPRESSION: Mild interstitial density may reflect bronchitis or chronic asthma. If concern for atypical pneumonia , follow-up can be performed. No focal infiltrate seen.
[2020-04-13] MEDS: PROPRANOLOL 20 MG TAB PO SCH ×2 (09:47→20:12)
[2020-04-13] MEDS: amLODIPine 5 MG TAB PO SCH (09:47)
[2020-04-13] MEDS: MONTELUKAST 10 MG TAB PO SCH (09:47)
[2020-04-13] MEDS: Mirabegron [Myrbetriq] PO SCH (09:48)
[2020-04-13] MEDS: TOPIRAMATE 25 MG TAB PO SCH ×3 (09:48→20:12)
[2020-04-13 10:07] LABS: African American GFR (CKD) 80.5 (60.0-200.0); Albumin 3.9 g/dL (3.80-4.90); Albumin/Globulin Ratio 1.86 (1.60-3.17); Anion Gap 7.7 mmol/L (4.00-12.00); BUN/Creat Ratio 32.22 Ratio (12.00-20.00); C Reactive Protein 0.9 mg/dL (0.0-0.8); Calcium 9.1 mg/dL (8.7-10.3); Carbon Dioxide 27.3 mmol/L (21.6-31.8); Globulin 2.1 g/dL (1.6-3.3); Non-African American GFR(CKD) 69.5 (60.0-200.0); Potassium 4.6 mmol/L (3.5-5.5); Total Bilirubin 0.1 mg/dL (0.3-1.2)
--- NOTE | 2020-04-13 16:13 | PN ---
PROGRESS NOTE DATE OF SERVICE: 04/13/2020 REASON FOR FOLLOWUP: Leukocytosis. INTERVAL HISTORY: The patient is currently afebrile. The patient is breathing more comfortably. Patient denies having any chest pain. Minimal cough. No abdominal pain. No diarrhea. No urinary symptoms. PHYSICAL EXAMINATION: Blood pressure 113/61 with pulse of 70, temperature 97.7. She is 96% on 2 L nasal cannula. General description is a middle-aged female up in the room in no distress. RESPIRATORY SYSTEM: Unlabored breathing, decreased intensity of breath sounds. No wheeze HEART: S1, S2. Regular rate and rhythm. ABDOMEN: Soft, no tenderness. LABS: Hemoglobin 13.5, white count 14,000. BUN of 29 and creatinine 0.9. D-dimer 0.49. CRP 0.9. Procalcitonin normal. Urine is negative. Chest x-ray did not show any acute infiltrate. DIAGNOSTIC IMPRESSION AND PLAN: 1. Patient with elevated white count more likely steroid effect, as no evidence of any focal bacterial infection. 2. Shortness of breath, more likely tracheobronchitis, not behaving as pneumonia to continue with tapering course of steroids and bronchodilator and continue supportive care. MMODL / IJN: [id number] /
[2020-04-13 17:38] LABS: Glucose,Whole Blood 100 mg/dL (75-99)
[2020-04-13] MEDS: INSULIN ASPART (NovoLOG) 100 UNIT/ML VIAL SQ SCH ×2 (17:46→20:15)
[2020-04-13] MEDS: ATORVASTATIN 10 MG TAB PO SCH (20:12)
[2020-04-13 20:17] LABS: Glucose,Whole Blood 116 mg/dL (75-99)
--- NOTE | 2020-04-13 22:07 | PN ---
PROGRESS NOTE A 60-year-old white female who was admitted with pneumonia. She is saturating 96% on 2 L. Blood pressure 113/61, temp 97.7, pulse 70. Complaining of bilateral headaches that are not going away and says Fioricet helps a little bit. She is refusing neurology consult. Labs show white count down to 14 from 19, hemoglobin 13.5. Total protein is 6. CRP is high at 0.9. Procalcitonin 0.05. Legionella is negative. ASSESSMENT: Bilateral pneumonia and possible discharge home in the next 24 to 48 hours as she appears to be improving. Will follow up as an outpatient. Please see further orders. MMODL / IJN: [id number] /
[2020-04-14 07:00] LABS: Basophils % (A) 0 %; Eosinophils % (A) 0 %; HCT 43.4 % (34.0-46.0); HGB 13.6 gm/dL (11.4-16.0); Hypochromasia Slight; Lymphocytes # (A) 1.6 k/uL (1.0-4.8); Lymphocytes % (A) 12 %; MCH 26.8 pg (25.0-35.0); MCHC 31.3 g/dL (31.0-37.0); MCV 85.5 fL (80.0-100.0); Mean Platelet Volume 7.5; Monocytes # (A) 0.6 k/uL (0-1.0); Monocytes % (A) 5 %; Neutrophils # (A) 10.8 k/uL (1.3-7.7); Neutrophils % (A) 82 %; Platelet Count 356 k/uL (150-450); RBC 5.08 m/uL (3.80-5.40); RDW 14.1 % (11.5-15.5); WBC 13.2 k/uL (3.8-10.6)
[2020-04-14 07:01] LABS: Glucose,Whole Blood 91 mg/dL (75-99)
[2020-04-14] MEDS: INSULIN ASPART (NovoLOG) 100 UNIT/ML VIAL SQ SCH ×4 (07:17→20:40)
[2020-04-14] MEDS: IPRATROPIUM-ALBUTEROL 3 ML NEB INHALATION SCH ×3 (07:28→20:31)
[2020-04-14] MEDS: MONTELUKAST 10 MG TAB PO SCH (07:35)
[2020-04-14] MEDS: BUTALB/APAP/CAFF 50-325-40MG TAB PO PRN (07:35)
[2020-04-14] MEDS: amLODIPine 5 MG TAB PO SCH (07:35)
[2020-04-14] MEDS: methylPREDNISolone SOD SUCCI 40 MG/ML 1 ML VIAL IV SCH ×3 (07:37→23:38)
[2020-04-14] MEDS: PROPRANOLOL 20 MG TAB PO SCH ×2 (07:37→20:48)
[2020-04-14] MEDS: TOPIRAMATE 25 MG TAB PO SCH ×3 (07:37→20:48)
[2020-04-14] MEDS: Mirabegron [Myrbetriq] PO SCH (07:38)
[2020-04-14 10:22] LABS: African American GFR (CKD) 80.5 (60.0-200.0); Albumin 3.8 g/dL (3.80-4.90); Albumin/Globulin Ratio 1.81 (1.60-3.17); BUN/Creat Ratio 32.22 Ratio (12.00-20.00); Calcium 9.2 mg/dL (8.7-10.3); Globulin 2.1 g/dL (1.6-3.3); Non-African American GFR(CKD) 69.5 (60.0-200.0); Total Bilirubin 0.1 mg/dL (0.3-1.2); Total Protein 5.9 g/dL (6.2-8.2)
[2020-04-14 11:52] LABS: Glucose,Whole Blood 104 mg/dL (75-99)
--- NOTE | 2020-04-14 11:55 | P.CNPUL ---
History of Present Illness Consult date: 04/14/20 Reason for consult: dyspnea, cough, pneumonia Chief complaint: Shortness of breath cough History of present illness: This is a 60-year-old female nonsmoker came into the hospital with increasing cough shortness of breath one day prior to coming into the hospital, denies any fever or chills, does have a history of hypertension hypertensive cardiovascular disease, and migraine headaches, admit laboratory data significant for leukocytosis, her covert testing is negative however computed tomography scan does show pneumonia currently patient is being treated with steroids breathing treatments and broad-spectrum antibiotics Review of Systems All systems: negative Past Medical History Past Medical History: CVA/TIA, Hypertension, Skin Disorder, Thyroid Disorder Additional Past Medical History / Comment(s): TIA X3, RT HAND NUMBNESS, neurofibormatosis-cyst form,bowel obstruction surgery 10/17/15 History of Any Multi-Drug Resistant Organisms: None Reported Past Surgical History: Appendectomy, Bariatric Surgery, Cholecystectomy, Hysterectomy, Orthopedic Surgery, Tonsillectomy Additional Past Surgical History / Comment(s): RYGB 11/22/2012, tumors removed from scalp, THYROIDECTOMY, panniculectomy 02/14/14 of 25lbs, lap band, gastric bypass. Bowel obstruction-laparoscopic surgery. Past Anesthesia/Blood Transfusion Reactions: No Reported Reaction Past Psychological History: No Psychological Hx Reported Smoking Status: Never smoker Past Alcohol Use History: None Reported Past Drug Use History: None Reported - Past Family History Sister(s) Family Medical History: Deep Vein Thrombosis (DVT) Medications and Allergies Home Medications Medication Instructions Recorded Confirmed Type Topiramate 50 mg PO TID 09/23/13 04/10/20 History Chlorthalidone 25 mg PO DAILY 10/17/15 04/10/20 History Propranolol [Inderal] 20 mg PO BID 10/17/15 04/10/20 History amLODIPine BESYLATE [Amlodipine 5 mg PO DAILY 10/17/15 04/10/20 History Besylate] Mirabegron [Myrbetriq] 50 mg PO DAILY 10/29/18 04/10/20 History Simvastatin [Zocor] 20 mg PO HS 10/29/18 04/10/20 History Montelukast [Singulair] 10 mg PO DAILY 04/10/20 04/10/20 History Allergies Allergy/AdvReac Type Severity Reaction Status Date / Time codeine Allergy Rash/Hives Verified 04/10/20 08:06 adhesive AdvReac Mild Rash/Hives Verified 04/10/20 08:06 Physical Exam Vitals: Vital Signs Temp Pulse Pulse Resp BP Pulse Ox 04/14/20 08:00 97.9 F 57 L 20 137/81 97 04/14/20 07:38 68 04/14/20 07:28 67 98 04/14/20 01:15 97.8 F 64 14 122/73 92 L 04/13/20 19:32 75 04/13/20 19:23 75 04/13/20 19:11 97.3 F L 75 14 120/82 95 04/13/20 13:45 97.7 F 70 20 113/61 96 04/13/20 13:03 64 04/13/20 12:50 62 Intake and Output 04/13/20 04/14/20 04/14/20 22:59 06:59 14:59 Intake Total 830 Balance 830 Intake: Intake, IV Titration 350 Amount Azithromycin 500 mg In 250 Sodium Chloride 0.9% 250 ml @ 250 mls/hr IVPB Q24H [facility]LE[facility] Rx#:[id number] cefTRIAXone 1 gm In 100 Sodium Chloride 0.9% 50 ml @ 100 mls/hr IVPB Q24H [facility]LE[facility] Rx#:[id number] Oral 480 Other: # Voids 2 1 - Constitutional General appearance: average body habitus, cooperative, disheveled - EENT Eyes: PERRLA ENT: hearing grossly normal Ears: bilateral: normal - Neck Carotids: bilateral: upstroke normal - Respiratory Respiratory: bilateral: CTA - Cardiovascular Rhythm: regular Heart sounds: normal: S1, S2 - Gastrointestinal General gastrointestinal: normal bowel sounds, soft - Integumentary Integumentary: normal turgor - Neurologic Neurologic: CNII-XII intact - Musculoskeletal Musculoskeletal: gait normal, generalized weakness, strength equal bilaterally - Psychiatric Psychiatric: A&O x's 3, appropriate affect, intact judgment & insight Results - Laboratory Findings CBC and BMP: 04/14/20 05:36 04/14/20 05:36 PT/INR, D-dimer PT 10.3 sec (9.0-12.0) 04/09/20 23:33 INR 1.0 (<1.2) 04/09/20 23:33 D-Dimer 0.49 mg/L FEU (<0.60) 04/13/20 05:51 Abnormal lab findings: Abnormal Labs 04/09/20 04/09/20 04/09/20 23:33 23:33 23:33 WBC 13.5 H Neutrophils # 9.3 H Monocytes # 1.1 H D-Dimer 0.65 H Sodium 134 L BUN 23 H BUN/Creatinine Ratio Glucose 113 H POC Glucose (mg/dL) Magnesium 2.5 H Total Bilirubin C-Reactive Protein Total Protein Ur Leukocyte Esterase 04/12/20 04/12/20 04/12/20 05:36 05:36 23:35 WBC 19.9 H Neutrophils # 17.8 H Monocytes # D-Dimer Sodium BUN BUN/Creatinine Ratio 27.78 H Glucose 121 H POC Glucose (mg/dL) Magnesium Total Bilirubin 0.1 L C-Reactive Protein Total Protein Ur Leukocyte Esterase Small H 04/13/20 04/13/20 04/13/20 05:51 05:51 17:37 WBC 14.0 H Neutrophils # 11.9 H Monocytes # D-Dimer Sodium BUN 29.0 H BUN/Creatinine Ratio 32.22 H Glucose POC Glucose (mg/dL) 100 H Magnesium Total Bilirubin 0.1 L C-Reactive Protein 0.9 H Total Protein 6.0 L Ur Leukocyte Esterase 04/13/20 04/14/20 04/14/20 20:14 05:36 05:36 WBC 13.2 H Neutrophils # 10.8 H Monocytes # D-Dimer Sodium BUN 29.0 H BUN/Creatinine Ratio 32.22 H Glucose POC Glucose (mg/dL) 116 H Magnesium Total Bilirubin 0.1 L C-Reactive Protein Total Protein 5.9 L Ur Leukocyte Esterase - Diagnostic Findings Chest x-ray: report reviewed, image reviewed CT scan - chest: report reviewed, image reviewed Assessment and Plan Assessment: Atypical pneumonia Increasing shortness of breath Chronic persistent asthma Hypertension hypertensive cardiovascular disease Chronic migraine headache Plan: Continue Rocephin since Zithromax IV steroids Reading treatments Deep breathing exercises incentive spirometry Further recommendations pending plan of care as per clinical response of patient Time with Patient: Greater than 30
--- NOTE | 2020-04-14 16:35 | PN ---
PROGRESS NOTE DATE OF SERVICE: 04/14/2020 REASON FOR FOLLOWUP: Leukocytosis. INTERVAL HISTORY: The patient is currently afebrile. The patient is breathing comfortably on room air. The patient denies having any chest pain or shortness of breath. Minimal cough. No abdominal pain or diarrhea. PHYSICAL EXAMINATION: Blood pressure 137/81 with a pulse of 62, temperature 97.9. She is 97% on room air. General description is a middle-aged female up in the room in no distress. RESPIRATORY SYSTEM: Unlabored breathing with decreased intensity of breath sounds. No wheeze. HEART: S1, S2. Regular rate and rhythm. ABDOMEN: Soft. LABS: Hemoglobin is 13.6, white count 13.2. BUN of 29, creatinine 0.9. DIAGNOSTIC IMPRESSION AND PLAN: Patient with leukocytosis, more likely steroid effect in this patient admitted to the hospital with shortness of breath, possible tracheobronchitis. Clinically not behaving as pneumonia. White count is showing a downward trend. Antibiotic can be safely discontinued. MMODL / IJN: [id number] / BIPIN
[2020-04-14 17:18] LABS: Glucose,Whole Blood 85 mg/dL (75-99)
--- NOTE | 2020-04-14 19:36 | PN ---
PROGRESS NOTE This is a 60-year-old white female admitted with community-acquired pneumonia, bilaterally, started on IV antibiotics Rocephin, azithromycin, much improved. Headache is even improving with only one taken today. She is 97% to 94% on room air, temperature 97 to 98, pulse 50s to 60s, respirations 18 to 20. Her labs show white count 13.2, down from 19. Sugars have been running 100s to 85. CARDIOVASCULAR: S1, S2. LUNGS: Clear. GI: Soft. ASSESSMENT: 1. Bilateral pneumonia. 2. Acute hypoxemic respiratory distress. 3. Asthma. 4. Chronic obstructive pulmonary disease. Possible discharge home tomorrow on Levaquin, steroid pack and updraft treatments. MMODL / IJN: [id number] /
[2020-04-14 20:42] LABS: Glucose,Whole Blood 108 mg/dL (75-99)
[2020-04-14] MEDS: ATORVASTATIN 10 MG TAB PO SCH (20:48)
[2020-04-14] MEDS ORDERED: AZITHROMYCIN 500 MG TAB PO SCH (21:00)
[2020-04-15 07:07] LABS: Glucose,Whole Blood 99 mg/dL (75-99)
[2020-04-15] MEDS: IPRATROPIUM-ALBUTEROL 3 ML NEB INHALATION SCH ×2 (07:09→10:48)
[2020-04-15] MEDS: INSULIN ASPART (NovoLOG) 100 UNIT/ML VIAL SQ SCH ×3 (07:13→17:17)
[2020-04-15] MEDS: methylPREDNISolone SOD SUCCI 40 MG/ML 1 ML VIAL IV SCH ×2 (07:59→17:14)
[2020-04-15] MEDS: MONTELUKAST 10 MG TAB PO SCH (07:59)
[2020-04-15] MEDS: amLODIPine 5 MG TAB PO SCH (07:59)
[2020-04-15] MEDS: BUTALB/APAP/CAFF 50-325-40MG TAB PO PRN (07:59)
--- NOTE | 2020-04-15 09:58 | P.PN ---
Subjective Progress Note Date: 04/15/20 Principal diagnosis: Atypical pneumonia Increasing shortness of breath Chronic persistent asthma Hypertension hypertensive cardiovascular disease Chronic migraine headache 04/15/2020, patient seen eval examined during the rounds shortness of breath stable, patient is tolerating antibiotics well breathing comfortably denies any cough or sputum production patient feels that he's she is ready to go home agree with discharge planning follow-up on outpatient basis, Eliecer 500 mg Zithromax for 7 days This is a 60-year-old female nonsmoker came into the hospital with increasing cough shortness of breath one day prior to coming into the hospital, denies any fever or chills, does have a history of hypertension hypertensive cardiovascular disease, and migraine headaches, admit laboratory data significant for leukocytosis, her covert testing is negative however computed tomography scan does show pneumonia currently patient is being treated with steroids breathing treatments and broad-spectrum antibiotics Objective - Vital Signs Vital signs: Vital Signs Temp 97.3 F L 04/15/20 08:00 Pulse 64 04/15/20 08:00 Resp 19 04/15/20 08:00 BP 130/83 04/15/20 08:00 Pulse Ox 94 L 04/15/20 08:00 Intake & Output 04/14/20 04/15/20 04/15/20 18:59 06:59 18:59 Other: Voiding Method Toilet # Voids 3 - Exam - Constitutional General appearance: average body habitus, cooperative, disheveled - EENT Eyes: PERRLA ENT: hearing grossly normal Ears: bilateral: normal - Neck Carotids: bilateral: upstroke normal - Respiratory Respiratory: bilateral: CTA - Cardiovascular Rhythm: regular Heart sounds: normal: S1, S2 - Gastrointestinal General gastrointestinal: normal bowel sounds, soft - Integumentary Integumentary: normal turgor - Neurologic Neurologic: CNII-XII intact - Musculoskeletal Musculoskeletal: gait normal, generalized weakness, strength equal bilaterally - Psychiatric Psychiatric: A&O x's 3, appropriate affect, intact judgment & insight - Labs CBC & Chem 7: 04/14/20 05:36 04/14/20 05:36 Labs: Abnormal Lab Results - Last 24 Hours (Table) 04/14/20 04/14/20 04/14/20 Range/Units 05:36 11:44 20:40 BUN 29.0 H (9.0-27.0) mg/dL BUN/Creatinine Ratio 32.22 H (12.00-20.00) Ratio POC Glucose (mg/dL) 104 H 108 H (75-99) mg/dL Total Bilirubin 0.1 L (0.3-1.2) mg/dL Total Protein 5.9 L (6.2-8.2) g/dL Assessment and Plan Assessment: Atypical pneumonia Increasing shortness of breath Chronic persistent asthma Hypertension hypertensive cardiovascular disease Chronic migraine headache Plan: Continue Rocephin since Zithromax, can be switched to oral Zithromax 500 daily for 7 days at the time of discharge IV steroids, can be switched to oral at the time of discharge Reading treatments Deep breathing exercises incentive spirometry Further recommendations pending plan of care as per clinical response of patient Time with Patient: Greater than 30
[2020-04-15] MEDS: Mirabegron [Myrbetriq] PO SCH (10:02)
[2020-04-15] MEDS: TOPIRAMATE 25 MG TAB PO SCH ×2 (10:02→17:14)
[2020-04-15] MEDS: PROPRANOLOL 20 MG TAB PO SCH (10:03)
[2020-04-15 11:52] LABS: Glucose,Whole Blood 110 mg/dL (75-99)
[2020-04-15 14:17] VITALS: BP 154/89; PULSE 59; RESP 18; TEMP 97.7
[2020-04-15 17:17] LABS: Glucose,Whole Blood 104 mg/dL (75-99)
--- NOTE | 2020-04-20 09:08 | DS ---
DISCHARGE SUMMARY DATE OF ADMISSION: 04/10/2020 DATE OF DISCHARGE: 04/15/2020. DISCHARGE MEDICINES: 1. Topiramate 50 t.i.d. 2. Amlodipine 5 mg daily. 3. Propranolol 20 mg b.i.d. 4. Chlorthalidone 25 mg daily. 5. Zocor 20 mg at bedtime. 6. Myrbetriq 50 mg daily. 7. Singulair 10 mg daily. CONDITION: Stable. PROGNOSIS: Guarded. AMBULATE: As tolerated. This is a white female who was admitted with community-acquired pneumonia, treated with IV antibiotics. She was stabilized after 2 or 3 days of IV antibiotics and fluids. She was sent home with Levaquin 500 mg daily one a day for 7 days and a Medrol Dosepak. Follow up as an outpatient. Condition was stabilized. Prognosis guarded. Ambulate as tolerated. MMLIANAL / JUDYN: [id number] /
== END 2020-04-15 17:52 | disposition home or self-care (01) | DRG 193 ==
LOC: EC 22:58 → 4SSUR 04-10 00:54
PROVIDERS: ADMIT Family Medicine; ATTEND Family Medicine
DX: J18.9 Pneumonia, unspecified organism (principal); J96.01 Acute respiratory failure with hypoxia; E87.1 Hypo-osmolality and hyponatremia; J44.0 Chronic obstructive pulmonary disease with (acute) lower respiratory infection; Q85.00 Neurofibromatosis, unspecified; D72.810 Lymphocytopenia; Z20.822 Contact with and (suspected) exposure to COVID-19; E89.0 Postprocedural hypothyroidism; I11.9 Hypertensive heart disease without heart failure; I25.10 Atherosclerotic heart disease of native coronary artery without angina pectoris; G43.909 Migraine, unspecified, not intractable, without status migrainosus; J45.30 Mild persistent asthma, uncomplicated; Z79.899 Other long term (current) drug therapy; Z98.84 Bariatric surgery status; Z86.73 Personal history of transient ischemic attack (TIA), and cerebral infarction without residual deficits; Z90.49 Acquired absence of other specified parts of digestive tract; Z90.89 Acquired absence of other organs; Z87.19 Personal history of other diseases of the digestive system; Z90.710 Acquired absence of both cervix and uterus; Z87.42 Personal history of other diseases of the female genital tract; Z87.2 Personal history of diseases of the skin and subcutaneous tissue; Z98.890 Other specified postprocedural states; Z88.5 Allergy status to narcotic agent; Z91.048 Other nonmedicinal substance allergy status; Z82.49 Family history of ischemic heart disease and other diseases of the circulatory system; Z83.2 Family history of diseases of the blood and blood-forming organs and certain disorders involving the immune mechanism
CPT/HCPCS: 36415; 71045; 71046; 71275; 80053; 81001; 83615; 83735; 83880; 84145; 84484; 85025; 85379; 85610; 85730; 86140; 87449; 87635; 93005; 94640; 94760; 99285

== ENCOUNTER 2021-10-07 09:58 | Day surgery (SDC) | payer MEDICARE, OTHER ==
[2021-10-05 11:48] VITALS: BMI 33.4
--- NOTE | 2021-10-07 07:42 | P.GSHP ---
History of Present Illness H&P Date: 10/07/21 CHIEF COMPLAINT: Colon screen HISTORY OF PRESENT ILLNESS: The patient is a 61-year-old female who presents for colon screen. Lower endoscopy was offered for further evaluation and management. PAST MEDICAL HISTORY: Please see list. PAST SURGICAL HISTORY: Please see list. MEDICATIONS: Please see list. ALLERGIES: Please see list. SOCIAL HISTORY: No illicit drug use FAMILY HISTORY: No reports of Crohn disease or ulcerative colitis. REVIEW OF ORGAN SYSTEMS: CONSTITUTIONAL: No reports of fevers or chills. PHYSICAL EXAM: VITAL SIGNS: Stable GENERAL: Well-developed pleasant in no acute distress. HEENT: No scleral icterus. Extraocular movements grossly intact. Moist buccal mucosa. NECK: Supple without lymphadenopathy. CHEST: Unlabored respirations. Equal bilateral excursions. CARDIOVASCULAR: Regular rate and rhythm. Distal 2+ pulses. ABDOMEN: Soft, nontender, nondistended. MUSCULOSKELETAL: No clubbing, cyanosis, or edema. ASSESSMENT: 1. Colon screen. PLAN: 1. Recommend proceeding with a lower endoscopy Past Medical History Past Medical History: Asthma, CVA/TIA, Hypertension, Skin Disorder, Thyroid Disorder Additional Past Medical History / Comment(s): TIA X3, RT HAND NUMBNESS, neurofibormatosis-cyst form,bowel obstruction History of Any Multi-Drug Resistant Organisms: None Reported Past Surgical History: Appendectomy, Bariatric Surgery, Cholecystectomy, Hysterectomy, Orthopedic Surgery, Tonsillectomy Additional Past Surgical History / Comment(s): RYGB 11/22/2012, tumors removed from scalp, THYROIDECTOMY, panniculectomy 02/14/14 of 25lbs, lap band, gastric bypass. Bowel obstruction-laparoscopic surgery. Past Anesthesia/Blood Transfusion Reactions: No Reported Reaction Past Psychological History: No Psychological Hx Reported Smoking Status: Never smoker Past Alcohol Use History: None Reported Past Drug Use History: None Reported - Past Family History Sister(s) Family Medical History: Deep Vein Thrombosis (DVT) Medications and Allergies Home Medications Medication Instructions Recorded Confirmed Type Topiramate 50 mg PO TID 09/23/13 10/05/21 History Chlorthalidone 25 mg PO DAILY 10/17/15 10/05/21 History Propranolol [Inderal] 20 mg PO BID 10/17/15 10/05/21 History amLODIPine BESYLATE [Amlodipine 5 mg PO DAILY 10/17/15 10/05/21 History Besylate] Mirabegron [Myrbetriq] 50 mg PO DAILY 10/29/18 10/05/21 History Simvastatin [Zocor] 20 mg PO HS 10/29/18 10/05/21 History Montelukast [Singulair] 10 mg PO DAILY 04/10/20 10/05/21 History Budesonide-Formot 160-4.5 Mcg 2 puff INHALATION BID PRN 11/24/20 10/05/21 History [Symbicort 160-4.5 Mcg Inhaler] Albuterol Nebulized (Conc) 2.5 mg INHALATION BID PRN 10/05/21 10/05/21 History [Ventolin Nebulized (Conc)] Allergies Allergy/AdvReac Type Severity Reaction Status Date / Time codeine Allergy Rash/Hives Verified 10/05/21 11:31 Penicillins Allergy Rash/Hives Verified 10/05/21 11:31 adhesive AdvReac Mild Rash/Hives Verified 10/05/21 11:31
[~2021-10-07 09:58] MED LIST: LACTATED RINGERS 1,000 ML IV SCH; LIDOCAINE 1% (10MG/ML) FOR IV START INTRADERMA PRN
[2021-10-07 10:34] VITALS: TEMP 97.8
[2021-10-07] MEDS ORDERED: PROPOFOL 10 MG/ML 20 ML VIAL IV ONE (10:53)
[2021-10-07] MEDS ORDERED: IV FLUID CONTINUATION 750 ML IV ONE (11:23)
[2021-10-07 11:45] VITALS: BP 105/58; PULSE 70; RESP 20
--- NOTE | 2021-10-07 11:53 | P.PCN ---
Date of Procedure: 10/07/21 Description of Procedure: PREOPERATIVE DIAGNOSIS: Abnormal Cologaurd test Abnormal fecal test POSTOPERATIVE DIAGNOSIS: Tubular adenoma cecum OPERATION: Colonoscopy to the ileocecal valve and appendiceal orifice, cecum Colonoscopy with hot snare polypectomy SURGEON: Cuca Reynolds MD. ANESTHESIA: MAC. INDICATIONS: The patient is an 61-year-old female who presents with an abnormal stool test. Benefits and risks were described and informed consent was obtained. DESCRIPTION OF PROCEDURE: The patient had undergone Sutab prep. The patient had been brought into the operating room and laid in the left lateral decubitus position. After adequate intravenous sedation, the rectum was examined with 2% lidocaine jelly. External hemorrhoids were encountered. The rectal tone was within normal limits. No lesions were palpated in the rectal vault. An Olympus colonoscope was advanced until the cecum, ileocecal valve and appendiceal orifice were clearly viewed. The prep was fair. No sigmoid diverticulosis was encountered. Colonic polyps were found and removed. No evidence of focal colitis was found. Retroflexion of the scope demonstrated grade 2 internal hemorrhoids without active bleeding or inflammation. The colon was desufflated. The patient had tolerated the procedure well. Withdrawal time was over 6 minutes. FINDINGS: Aronchick preparation quality scale 3 (1-5) Internal hemorrhoids, grade 2 External hemorrhoids, grade 2. No arteriovenous malformations. No sigmoid diverticulosis Removal of 1 polyps: - Snare polypectomy at cecum, 5 mm tubulovillous adenoma polyp. No focal colitis. RECOMMENDATIONS: Repeat colonoscopy 3 years, 2024 Plan - Discharge Summary Discharge Rx Participant: No New Discharge Prescriptions: Continue Topiramate 50 mg PO TID amLODIPine BESYLATE [Amlodipine Besylate] 5 mg PO DAILY Propranolol [Inderal] 20 mg PO BID Chlorthalidone 25 mg PO DAILY Simvastatin [Zocor] 20 mg PO HS Mirabegron [Myrbetriq] 50 mg PO DAILY Montelukast [Singulair] 10 mg PO DAILY Albuterol Nebulized (Conc) [Ventolin Nebulized (Conc)] 2.5 mg INHALATION BID PRN PRN Reason: Allergy Symptoms Budesonide-Formot 160-4.5 Mcg [Symbicort 160-4.5 Mcg Inhaler] 2 puff INHALATION BID PRN PRN Reason: Allergy Symptoms Discharge Medication List Topiramate 50 mg PO TID 09/23/13 [History] Chlorthalidone 25 mg PO DAILY 10/17/15 [History] Propranolol [Inderal] 20 mg PO BID 10/17/15 [History] amLODIPine BESYLATE [Amlodipine Besylate] 5 mg PO DAILY 10/17/15 [History] Mirabegron [Myrbetriq] 50 mg PO DAILY 10/29/18 [History] Simvastatin [Zocor] 20 mg PO HS 10/29/18 [History] Montelukast [Singulair] 10 mg PO DAILY 04/10/20 [History] Budesonide-Formot 160-4.5 Mcg [Symbicort 160-4.5 Mcg Inhaler] 2 puff INHALATION BID PRN 11/24/20 [History] Albuterol Nebulized (Conc) [Ventolin Nebulized (Conc)] 2.5 mg INHALATION BID PRN 10/05/21 [History] Follow up Appointment(s)/Referral(s): Cuca Reynolds MD [STAFF PHYSICIAN] - 1 Week Patient Instructions/Handouts: *[facility] - (Anesthesia) Endoscopy Discharge Instructions, Colorectal Polyps (GEN), Colonoscopy (GEN) Activity/Diet/Wound Care/Special Instructions: Repeat colonoscopy in 3 years, 2024 Discharge Disposition: HOME SELF-CARE
== END 2021-10-07 12:15 | disposition home or self-care (01) ==
LOC: ORWHC2ENDO 09:58
PROVIDERS: ATTEND Surgery Plastic and Reconstructive Surgery
DX: Z12.11 Encounter for screening for malignant neoplasm of colon (principal); D12.0 Benign neoplasm of cecum; K64.1 Second degree hemorrhoids; J45.909 Unspecified asthma, uncomplicated; I10 Essential (primary) hypertension; Z86.73 Personal history of transient ischemic attack (TIA), and cerebral infarction without residual deficits; E07.9 Disorder of thyroid, unspecified; D36.10 Benign neoplasm of peripheral nerves and autonomic nervous system, unspecified; Z90.49 Acquired absence of other specified parts of digestive tract; Z98.84 Bariatric surgery status; Z79.899 Other long term (current) drug therapy; Z88.0 Allergy status to penicillin; Z88.5 Allergy status to narcotic agent; Z91.09 Other allergy status, other than to drugs and biological substances; Z82.49 Family history of ischemic heart disease and other diseases of the circulatory system
CPT/HCPCS: 45385; J2704; 88305

== ENCOUNTER → 2021-10-21 | Outpatient (CLI) | payer MEDICARE, OTHER ==
--- NOTE | 2021-10-21 11:19 | FL ---
ESOPHOGRAM. HISTORY: Dysphagia Esophagram was performed per the air contrast technique. The patient swallowed barium and effervesce nt crystals without difficulty or delay. Esophageal peristalsis and motility appear to be within normal limits. There is no evidence for filling defect, mass or diverticulum. No hiatal hernia seen. Subsequently single contrast cervical esophagram was performed which fails demonstrate evidence for a spiration penetration or mass. There is hypertrophy of the cricopharyngeus musculature. IMPRESSION: 1.There is hypertrophy of the cricopharyngeus musculature.
== END | disposition home or self-care (01) ==
LOC: RADUSWWP 09:44
PROVIDERS: ATTEND Surgery Plastic and Reconstructive Surgery
DX: R13.10 Dysphagia, unspecified (principal)
CPT/HCPCS: 74220

== ENCOUNTER → 2021-12-21 | Outpatient (CLI) | payer MEDICARE ==
[2021-12-21 14:16] LABS: INR 0.9 (<1.2); Partial Thromboplastin Time 28.5 sec (22.0-30.0); Prothrombin Time 10.4 sec (9.0-12.0)
[2021-12-21 18:25] LABS: HCT 48.6 % (37.2-46.3); HGB 15.6 g/dL (12.0-15.0); MCH 28.5 pg (27.0-32.0); MCHC 32.1 g/dL (32.0-37.0); MCV 88.8 fL (80.0-97.0); Mean Platelet Volume 10.4 fL (9.5-12.2); NRBC Per 100 WBC 0 /100 WBCS (0.0-0.0); Platelet Count 287 X 10*3/uL (140-440); RBC 5.47 X 10*6/uL (4.10-5.20); RDW 12.6 % (11.5-14.5); WBC 10.36 X 10*3/uL (4.50-10.00)
[2021-12-21 18:44] LABS: % Iron Saturation 31.43 (12.00-45.00); ALT 14 U/L (8-44); AST 22 U/L (13-35); African American GFR (CKD) 63.5 (60.0-200.0); Albumin/Globulin Ratio 1.33 (1.60-3.17); Alkaline Phosphatase 95 U/L (41-126); BUN/Creat Ratio 23.85 Ratio (12.00-20.00); Calcium 9.4 mg/dL (8.7-10.3); Carbon Dioxide 26.3 mmol/L (20.0-27.5); Chloride 104 mmol/L (96-109); Ferritin 88.2 ng/mL (10.0-291.0); Glucose 100 mg/dL (70-110); Iron 110 ug/dL (50-170); Magnesium 2.6 mg/dL (1.5-2.4); Non-African American GFR(CKD) 54.8 (60.0-200.0); Phosphorus 4.4 mg/dL (2.4-5.1); Sodium 142 mmol/L (135-145); Total Iron Binding Capacity 350 ug/dL (228-460); Total Protein 7.1 g/dL (6.2-8.2)
[2021-12-21 21:04] LABS: Chol/HDL Ratio 4.33 Ratio; LDL Cholesterol,Calculated 112.8 mg/dL (0.0-131.0); Prealbumin 25.6 mg/dL (18.0-42.0)
[2021-12-22 14:54] LABS: Zinc, Serum 81 ug/dL (60-130)
== END | disposition home or self-care (01) ==
LOC: LABWHC1 13:09
PROVIDERS: ATTEND Surgery Plastic and Reconstructive Surgery
DX: E66.01 Morbid (severe) obesity due to excess calories (principal); D50.8 Other iron deficiency anemias; E44.0 Moderate protein-calorie malnutrition; E55.9 Vitamin D deficiency, unspecified; K74.1 Hepatic sclerosis; N19 Unspecified kidney failure; K50.90 Crohn's disease, unspecified, without complications
CPT/HCPCS: 36415; 80053; 80061; 82306; 82525; 82607; 82728; 82746; 83036; 83540; 83550; 83735; 83970; 84100; 84134; 84255; 84425; 84443; 84590; 84630; 85027; 85610; 85730

== ENCOUNTER → 2022-06-22 | Outpatient (CLI) | payer MEDICARE, OTHER ==
--- NOTE | 2022-06-22 14:34 | BD ---
EXAMINATION TYPE: Axial Bone Density DATE OF EXAM: 06/22/2022 CLINICAL HISTORY: 62 year old Female. ICD-10 CODE: Z78.0 POST MENOPAUSAL Height: 60 Weight: 214 FRAX RISK QUESTIONS: Family History (Parent hip fracture): yes, father History of Fracture in Adulthood: yes, lt tibia, lt wrist Secondary Osteoporosis: yes 3. Menopause before 45: 39 RISK FACTORS HISTORY OF: History of Wrist Fracture: yes lt When: 10+ years Family History of Osteoporosis: yes, father & mother Active: no Diet low in dairy products/other sources of calcium: no Postmenopausal woman: yes Lost more than 2 inches in height since high school: no Frequent falls: yes Poor Health: no MEDICATIONS: Additional Medications: yes hbp meds, cholesterol, calcium, baby aspirin, EXAM MEASUREMENTS: Bone mineral densitometry was performed using the [employer] System. Bone mineral density as measured about the Lumbar spine is: ----- L1-L4(G/cm2): 1.184 T Score Values are as follows: ----- L1: -0.1 ----- L2: 0.0 ----- L3: -0.4 ----- L4: 0.6 ----- L1-L4: 0.0 Z Score Values are as follows: ----- L1: 0.2 ----- L2: 0.3 ----- L3: -0.1 ----- L4: 0.9 ----- L1-L4: 0.3 Bone mineral density baseline Bone mineral density about the R hip (g/cm2): 0.880 Bone mineral density about the L hip (g/cm2): 0.887 T Score values are as follows: -----R Neck: -1.9 -----L Neck: -2.0 -----R Total: -1.0 -----L Total: -1.0 Z Score values are as follows: -----R Neck: -1.3 -----L Neck: -1.3 -----R Total: -0.7 -----L Total: -0.7 Bone mineral density baseline FRAX%s: The graph provided illustrates a 27.6% chance for a major osteoporotic fx and a 2.0% chance f or the hips probability for fx in 10 years time. IMPRESSION: Osteopenia (T Score between -2.5 and -1). There is slightly increased risk of fracture and the patient may be considered for treatment. Re-Screen 2-5 years. NOTE: T-SCORE=SD OF THE YOUNG ADULT MEAN.
--- NOTE | 2022-06-24 09:06 | MM ---
Reason for Exam: Screening (asymptomatic). Last mammogram was performed 3 year(s) and 8 month(s) ago. Patient History: Menarche at age 8. Patient has no children. Left ovary removed at age 39. Right ovary removed at age 39. Hysterectomy at age 39. Postmenopausal. Cyst Aspiration on the Right side. Cyst Aspiration on the Left side. 01/2004, Benign Excisional Biopsy on the right side. Excisional Biopsy on the Left side. 11/15/2018, Benign Core Biopsy on the left side. 12/08/1999, Benign Stereotactic Core Biopsy on the left side. 02/19/1998, Benign Stereotactic Core Biopsy on the right side. 02/12/1997, Benign Core Biopsy on the right side. 02/12/1997, Benign Core Biopsy on the left side. Maternal cousin had breast cancer, age 44. Maternal aunt had breast cancer, age 55. Risk Values: Winter 5 year model risk: 2.8%. NCI Lifetime model risk: 12.3%. Prior Study Comparison: 03/01/2017 Bilateral Diagnostic Mammogram, [facility]. 10/24/2018 Bilateral Diagnostic Mammogram, [facility]. 05/13/2019 Left Diagnostic Mammogram, [facility]. Tissue Density: The breast tissue is heterogeneously dense. This may lower the sensitivity of mammography. Findings: Analyzed By CAD. There is no suspicious group of microcalcifications or new suspicious mass in either breast. Chronic nodularity within both breasts. Benign-appearing round calcifications within both breasts. Left biopsy markers noted. Overall Assessment: Benign, BI-RAD 2 Management: Screening Mammogram of both breasts in 1 year. A clinical breast exam by your physician is recommended on an annual basis and results should be correlated with mammographic findings. Electronically signed and approved by: Justo Medellin D.O.
== END | disposition home or self-care (01) ==
LOC: RADMAMWWP 13:47
PROVIDERS: ATTEND Family Medicine
DX: Z12.31 Encounter for screening mammogram for malignant neoplasm of breast (principal); M85.89 Other specified disorders of bone density and structure, multiple sites; Z78.0 Asymptomatic menopausal state; Z80.3 Family history of malignant neoplasm of breast; Z98.890 Other specified postprocedural states
CPT/HCPCS: 77063; 77067; 77080

== ENCOUNTER 2022-08-04 06:56 | Day surgery (SDC) | payer MEDICARE, OTHER ==
[2022-07-29 13:50] VITALS: BMI 41.0
[2022-08-04] MEDS: LACTATED RINGERS 1,000 ML IV SCH ×2 (07:02→09:10)
--- NOTE | 2022-08-04 07:09 | P.GSHP ---
History of Present Illness H&P Date: 08/04/22 CHIEF COMPLAINT: GERD HISTORY OF PRESENT ILLNESS: The patient is a 62-year-old female who presents reports gastroesophageal reflux disease. Upper endoscopy was offered for further evaluation and management. PAST MEDICAL HISTORY: Please see list. PAST SURGICAL HISTORY: Please see list. MEDICATIONS: Please see list. ALLERGIES: Please see list. SOCIAL HISTORY: No illicit drug use FAMILY HISTORY: No reports of Crohn disease or ulcerative colitis. REVIEW OF ORGAN SYSTEMS: CONSTITUTIONAL: No reports of fevers or chills. GI: Denies any blood in stools or constipation. PHYSICAL EXAM: VITAL SIGNS: Stable GENERAL: Well-developed and pleasant in no acute distress. HEENT: No scleral icterus. Extraocular movements grossly intact. Moist buccal mucosa. NECK: Supple without lymphadenopathy. CHEST: Unlabored respirations. Equal bilateral excursions. CARDIOVASCULAR: Regular rate and rhythm. Distal 2+ pulses. ABDOMEN: Soft, nondistended. MUSCULOSKELETAL: No clubbing, cyanosis, or edema. ASSESSMENT: 1. Gastroesophageal reflux disease PLAN: 1. Recommend proceeding with an upper endoscopy Past Medical History Past Medical History: Asthma, CVA/TIA, Hypertension, Skin Disorder, Thyroid Disorder Additional Past Medical History / Comment(s): TIA X3, RT HAND NUMBNESS, neurofibromatosis, bowel obstruction History of Any Multi-Drug Resistant Organisms: None Reported Past Surgical History: Appendectomy, Bariatric Surgery, Cholecystectomy, Hysterectomy, Orthopedic Surgery, Tonsillectomy Additional Past Surgical History / Comment(s): RYGB 11/22/2012, tumors removed from scalp, THYROIDECTOMY, panniculectomy 02/14/14 of 25lbs, lap band-gastric bypass. Bowel obstruction-laparoscopic surgery. Past Anesthesia/Blood Transfusion Reactions: No Reported Reaction Past Psychological History: No Psychological Hx Reported Smoking Status: Never smoker Past Alcohol Use History: None Reported Past Drug Use History: None Reported - Past Family History Sister(s) Family Medical History: Deep Vein Thrombosis (DVT) Medications and Allergies Home Medications Medication Instructions Recorded Confirmed Type Topiramate 50 mg PO TID 09/23/13 07/29/22 History Chlorthalidone 25 mg PO DAILY 10/17/15 07/29/22 History Propranolol [Inderal] 20 mg PO BID 10/17/15 07/29/22 History amLODIPine BESYLATE [Amlodipine 5 mg PO DAILY 10/17/15 07/29/22 History Besylate] Mirabegron [Myrbetriq] 50 mg PO DAILY 10/29/18 07/29/22 History Simvastatin [Zocor] 20 mg PO HS 10/29/18 07/29/22 History Montelukast [Singulair] 10 mg PO DAILY 04/10/20 07/29/22 History Budesonide-Formot 160-4.5 Mcg 2 puff INHALATION BID PRN 11/24/20 07/29/22 History [Symbicort 160-4.5 Mcg Inhaler] Albuterol Nebulized (Conc) 2.5 mg INHALATION BID PRN 10/05/21 07/29/22 History [Ventolin Nebulized (Conc)] Aspirin [[place] Aspirin EC] 81 mg PO DAILY 07/29/22 07/29/22 History Allergies Allergy/AdvReac Type Severity Reaction Status Date / Time codeine Allergy Rash/Hives Verified 07/29/22 13:41 Penicillins Allergy Rash/Hives Verified 07/29/22 13:41 adhesive AdvReac Mild Rash/Hives Verified 07/29/22 13:41
[2022-08-04 07:16] VITALS: TEMP 97.4
[2022-08-04] MEDS ORDERED: PROPOFOL 10 MG/ML 20 ML VIAL IV ONE (09:12)
[2022-08-04] MEDS ORDERED: LIDOCAINE 2% INJ 20 MG/ML (2 ML VIAL) ONE (09:12)
--- NOTE | 2022-08-04 09:40 | P.PCN ---
Date of Procedure: 08/04/22 Description of Procedure: PREOPERATIVE DIAGNOSES: 1. Dysphagia 2. Morbid obesity due to excess calories 3. History of gastric bypass POSTOPERATIVE DIAGNOSES: 1. Dysphagia 2. Morbid obesity due to excess calories 3. History of gastric bypass 4. Gastrojejunal ulcer with bleeding with stricture PROCEDURE PERFORMED: Esophagogastrojejunoscopy with cold forceps biopsy gastric pouch. SURGEON: Cuca Reynolds MD ANESTHESIA: MAC. INDICATIONS: The patient is a 62-year-old female presents with dysphagia. Upper endoscopy is referred for a diagnostic assessment including biopsies. DESCRIPTION: Patient was brought to the endoscopy suite and laid in the left lateral decubitus position. After adequate IV sedation, a bite block was placed. An Olympus gastroscope was passed along the posterior oropharynx down to the distal esophagus where the squamocolumnar junction was found at approximately 38 cm. Gastrojejunal ulcer 3 mm with active bleeding was identified along the anastomosis with biopsies obtained. The scope was advanced 60 cm from the incisors. No evidence of foreign body was found. No evidence of active gastrojejunal ulcerations were encountered. The GI tract was desufflated. The patient tolerated the procedure well. FINDINGS: 1. 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 No foreign body found along the anastomosis. PLAN: 1. Continue Protonix daily and Carafate twice a day with repeat upper endoscopy 4 weeks Plan - Discharge Summary Discharge Rx Participant: No New Discharge Prescriptions: No Action Topiramate 50 mg PO TID amLODIPine BESYLATE [Amlodipine Besylate] 5 mg PO DAILY Propranolol [Inderal] 20 mg PO BID Chlorthalidone 25 mg PO DAILY Simvastatin [Zocor] 20 mg PO HS Mirabegron [Myrbetriq] 50 mg PO DAILY Montelukast [Singulair] 10 mg PO DAILY Albuterol Nebulized (Conc) [Ventolin Nebulized (Conc)] 2.5 mg INHALATION BID PRN PRN Reason: Allergy Symptoms Aspirin [[place] Aspirin EC] 81 mg PO DAILY Budesonide-Formot 160-4.5 Mcg [Symbicort 160-4.5 Mcg Inhaler] 2 puff INHALATION BID PRN PRN Reason: Allergy Symptoms Discharge Medication List Topiramate 50 mg PO TID 09/23/13 [History] Chlorthalidone 25 mg PO DAILY 10/17/15 [History] Propranolol [Inderal] 20 mg PO BID 10/17/15 [History] amLODIPine BESYLATE [Amlodipine Besylate] 5 mg PO DAILY 10/17/15 [History] Mirabegron [Myrbetriq] 50 mg PO DAILY 10/29/18 [History] Simvastatin [Zocor] 20 mg PO HS 10/29/18 [History] Montelukast [Singulair] 10 mg PO DAILY 04/10/20 [History] Budesonide-Formot 160-4.5 Mcg [Symbicort 160-4.5 Mcg Inhaler] 2 puff INHALATION BID PRN 11/24/20 [History] Albuterol Nebulized (Conc) [Ventolin Nebulized (Conc)] 2.5 mg INHALATION BID PRN 10/05/21 [History] Aspirin [[place] Aspirin EC] 81 mg PO DAILY 07/29/22 [History]
[2022-08-04 10:07] VITALS: BP 132/77; PULSE 62; RESP 20
== END 2022-08-04 10:59 | disposition home or self-care (01) ==
LOC: ORWHC2ENDO 06:56
PROVIDERS: ATTEND Surgery Plastic and Reconstructive Surgery
DX: K29.50 Unspecified chronic gastritis without bleeding (principal); K21.9 Gastro-esophageal reflux disease without esophagitis; E66.01 Morbid (severe) obesity due to excess calories; I10 Essential (primary) hypertension; E07.9 Disorder of thyroid, unspecified; Z68.1 Body mass index [BMI] 19.9 or less, adult; Z98.84 Bariatric surgery status; K28.9 Gastrojejunal ulcer, unspecified as acute or chronic, without hemorrhage or perforation; Z79.82 Long term (current) use of aspirin; J45.909 Unspecified asthma, uncomplicated; Z86.73 Personal history of transient ischemic attack (TIA), and cerebral infarction without residual deficits; Z90.49 Acquired absence of other specified parts of digestive tract; Z90.89 Acquired absence of other organs; Z90.710 Acquired absence of both cervix and uterus; Z98.890 Other specified postprocedural states; Z79.51 Long term (current) use of inhaled steroids; Z79.899 Other long term (current) drug therapy; Z88.0 Allergy status to penicillin; Z88.5 Allergy status to narcotic agent
CPT/HCPCS: 43239; 88305

== ENCOUNTER → 2023-02-01 | Outpatient (CLI) | payer MEDICARE, OTHER ==
[2023-02-01 13:51] VITALS: BP 137/83; PULSE 69; TEMP 97.6; BMI 42.3
--- NOTE | 2023-02-01 14:11 | P.BASOAP ---
Subjective Progress Note Date: 02/01/23 She is here after stable weight. No mobile or email. No swallowing problems. Needs blood work check. Needs blood work this year. She reports hunger at night. Last visit in 2015. a prior history of Khris-en-Y gastric bypass performed in November 2012. Her highest weight was 294 pounds. Today she comes in weighing 186 pounds. Total lifetime weight loss is 108 pounds. Powell body weight for her 5 foot frame is 127 pounds. Drink 180 oz daily. Formula of .67 x weight. Objective - Vital Signs Vital signs: Vital Signs Temp 97.6 F 02/01/23 13:26 Pulse 69 02/01/23 13:26 Resp BP 137/83 02/01/23 13:26 Pulse Ox FiO2 Intake & Output 01/31/23 02/01/23 02/01/23 18:59 06:59 18:59 Weight 98.43 kg Assessment/Plan Plan: Date: 02/01/23 Initial Weight: 120.746 kg Initial BMI: 52.0 Current Weight: 98.43 kg Current BMI: 42.3 Type of Surgery: Total Volume in Band: Previous Volume: Volume Removed: Volume Added: Band Size:
[2023-02-01 17:05] LABS: INR 0.9 (<1.2); Partial Thromboplastin Time 27.6 sec (22.0-30.0); Prothrombin Time 10.2 sec (10.0-12.5)
[2023-02-02 03:27] LABS: % Iron Saturation 28.33 (12.00-45.00); ALT 11 U/L (8-44); AST 15 U/L (13-35); Albumin 3.9 d/dL (3.8-4.9); Albumin/Globulin Ratio 1.62 Ratio (1.60-3.17); Alkaline Phosphatase 109 U/L (41-126); BUN/Creat Ratio 25.22 Ratio (12.00-20.00); Blood Urea Nitrogen 22.7 mg/dL (9.0-27.0); Calcium 9.7 mg/dL (8.7-10.3); Carbon Dioxide 27.5 mmol/L (21.6-31.8); Chloride 104 mmol/L (96-109); Chol/HDL Ratio 3.86 Ratio; Ferritin 41.3 ng/mL (10.0-291.0); Globulin 2.4 d/dL (1.6-3.3); Glucose 85 mg/dL (70-110); Iron 100 UG/DL (50-170); Magnesium 2.5 mg/dL (1.5-2.4); Phosphorus 4.1 mg/dL (2.4-5.1); Potassium 4.7 mmol/L (3.5-5.5); Sodium 143 mmol/L (135-145); Total Bilirubin 0.2 mg/dL (0.3-1.2); Total Iron Binding Capacity 353 UG/DL (228-460); Total Protein 6.3 d/dL (6.2-8.2)
[2023-02-02 03:53] LABS: HGB 14.8 d/dL (12.0-15.0); MCH 28.2 pg (27.0-32.0); MCHC 30.8 d/dL (32.0-37.0); MCV 91.6 FL (80.0-97.0); Mean Platelet Volume 11.9 FL (9.5-12.2); NRBC Per 100 WBC 0 X 10*3/uL (0.00-0.01); Platelet Count 409 X 10*3/uL (140-440); RBC 5.24 X 10*6/uL (4.10-5.20); RDW 13.7 % (11.5-14.5); WBC 11.81 X 10*3/uL (4.50-10.00)
[2023-02-02 04:17] LABS: Prealbumin 21.2 mg/dL (18.0-42.0)
[2023-02-02 13:44] LABS: LDL Cholesterol,Calculated 108.4 mg/dL (0.0-131.0)
[2023-02-03 07:08] LABS: Vitamin A 54 ug/dL (38-106)
[2023-02-03 11:13] LABS: Zinc, Serum 74 ug/dL (60-130)
[2023-02-03 12:00] LABS: Vit B1(Thiamine) 61 ug/L (38-122)
[2023-02-09 07:58] LABS: Selenium 108 mcg/L (63-160)
== END ==
LOC: BARWHC3 13:04
PROVIDERS: ATTEND Surgery Plastic and Reconstructive Surgery
DX: E66.01 Morbid (severe) obesity due to excess calories (principal); D50.8 Other iron deficiency anemias; K90.89 Other intestinal malabsorption; E55.9 Vitamin D deficiency, unspecified; K74.1 Hepatic sclerosis; N19 Unspecified kidney failure; T56.894A Toxic effect of other metals, undetermined, initial encounter; K50.90 Crohn's disease, unspecified, without complications; Z68.41 Body mass index [BMI] 40.0-44.9, adult; Z88.5 Allergy status to narcotic agent; Z88.0 Allergy status to penicillin; Z91.048 Other nonmedicinal substance allergy status
CPT/HCPCS: 84255; 84134; 84425; 80061; 80053; 82607; 82728; 82525; 82746; 83540; 83550; 83735; 84100; 84443; 84590; 84630; 85027; 85610; 85730; 82306; 83970; 83036; G0463; 99211

== ENCOUNTER → 2023-05-05 | Outpatient (CLI) | payer MEDICARE, OTHER ==
--- NOTE | 2023-05-05 12:04 | CT ---
EXAMINATION TYPE: CT soft tissue neck wo con DATE OF EXAM: 05/05/2023 HISTORY: Bilateral neck mass COMPARISON: No prior CT of the neck. MRI of the brain dated 08/28/2015 CT DLP: 436.1 mGycm. Automated Exposure Control for Dose Reduction was Utilized. Technique: Multiple axial images are obtained from the skull base to the thoracic inlet without use o f IV contrast material. FINDINGS: There are postsurgical changes in the posterior fossa on the right with a craniotomy defect in multip le metallic clips in the posterior fossa and in the soft tissues posterior to the upper cervical spin e. On the posterior aspect of the right temporal bone at the anterior margin of the craniotomy defect, t here are erosive changes in the bone. There is a focal area of periosteal elevation with underlying s oft tissue mass in the right lateral occipital bone. There is marked adjacent soft tissue density in the region of the craniotomy defect. There appears to extrusion of the posterior fossa CSF through th e craniotomy defect which is identified on the prior MRI and is unchanged. Also marked encephalomalac ia of the right cerebellar hemisphere presumably postsurgical in nature. Within the soft tissues adjacent to the left occipital bone there is a 14 mm mass which could represe nt metastatic nodule or enlarged lymph node. There is a 4 cm soft tissue mass in the region the right jugular lymph node chain consistent with mar kedly enlarged lymph node or conglomerate mass of enlarged lymph nodes. The thyroid gland is not enlarged and is homogeneous. The larynx including the cricoid, arytenoid and thyroid cartilages as well as a true and false vocal cords are normal and symmetric. Tongue base,, aryepiglottic folds, piriform sinuses and vallecula are normal and symmetric. There is no pharyngeal or parapharyngeal soft tissue mass. The submandibular and parotid glands are normal and symmetric in size without focal mass.. Paranasal sinuses and mastoid air cells are well aerated. There is diffuse enlargement of the left optic nerve which is not seen on the prior study. MRI would be useful for further evaluation. IMPRESSION: 1. Postsurgical changes of a right occipital craniotomy. 2. Ill-defined soft tissue mass adjacent to the craniotomy with evidence for mild erosive changes at the margin of the craniotomy defect in the posterior right temporal bone as described above. The fin dings are suspicious for recurrent neoplasm particularly given the adenopathy in the right jugular ch ain and left occipital region as described above. 3. Diffuse enlargement/mass of the left optic nerve. MRI would be useful for further evaluation.
--- NOTE | 2023-05-05 12:51 | FL ---
EXAMINATION TYPE: FL barium swallow DATE OF EXAM: 05/05/2023 11:00 AM COMPARISON: . 04/13/2020 CLINICAL INDICATION:Female, 63 years old with history of R13.10; PH, TECHNIQUE: The procedure was explained and patient history elicited. All patient questions were ans wered prior to start of procedure. Multiple spot fluoroscopic images of the esophagus were obtained a fter the oral ingestion of effervescent crystals and liquid barium as the contrast agent. Fluoroscopic time: 17 sec Fluoroscopic images: Radiographs taken: 49 DAP: Not reported [id number] FINDINGS: The esophagus demonstrates normal primary and secondary peristalsis. There was free flow of contrast from the mouth the stomach. The esophageal mucosa is smooth without evidence of focal stricture, ulce ration, or abnormal outpouching. No gastroesophageal reflux disease was identified. IMPRESSION: 1. Free flow of contrast from the mouth the stomach. Given patient's complaint of solids getting stuc k consider modified barium swallow with speech pathology
== END | disposition home or self-care (01) ==
LOC: RADUSWWP 10:04
PROVIDERS: ATTEND Family Medicine
DX: M79.89 Other specified soft tissue disorders (principal); R22.1 Localized swelling, mass and lump, neck; R13.10 Dysphagia, unspecified; Z98.890 Other specified postprocedural states
CPT/HCPCS: 70490; 74220